=== PATIENT | male | born 1980 | race Caucasian/White ===

== ENCOUNTER 2019-09-24 11:05 | Outpatient (CLI) | payer OTHER, SELFPAY ==
[2019-09-25 16:45] LABS: COVID-19 RT-PCR Result See Comments
== END 2019-09-24 11:25 ==
PROVIDERS: PCP Family Medicine; Visit Provider Family Medicine
DX: J06.9 Acute upper respiratory infection, unspecified (principal); Z20.828 Contact with and (suspected) exposure to other viral communicable diseases; Z11.59 Encounter for screening for other viral diseases
CPT/HCPCS: 87449; U0003

== ENCOUNTER 2020-06-08 01:47 | Outpatient (CLI) | payer OTHER, SELFPAY ==
--- NOTE | 2020-06-08 09:15 | DI.US_ITS ---
EXAM: US RENAL CLINICAL HISTORY: Left sided back pain with history of stones,N20.0. TECHNIQUE: Nelson scale, color and spectral Doppler were used. COMPARISON: CT RENAL COLIC WO CONTRAST from 05/30/2011 FINDINGS: The exam is severely limited due to patient body habitus. Renal size in cm: Right: The right kidney was not able to be visualized. The liver is is enlarged an d shows severe fatty infiltration, obscuring the is visualization of the right kidney. Left: 12.3 x 6.9 x 6.0. Echogenicity: Normal Hydronephrosis: No Cyst or mass: No Nephrolithiasis: No Bladder:Normal Prevoid vol: 131 cc Postvoid vol:3 cc Prostate not visualized IMPRESSION: Normal appearing left kidney. The right kidney was not visualized due to body habitus and fatty avi er. DATA REPOSITORY:
[2020-06-08 09:20] LABS: Hemoglobin A1C 9.5 % (<5.7)
[2020-06-08 09:39] LABS: CREATININE 0.85 mg/dL (0.70-1.30); Calculated LDL 107 mg/dL (<100); Cholesterol 168 mg/dL (<200); HDL Cholesterol 29 mg/dL (40-60); Triglyceride 163 mg/dL (<150)
== END 2020-06-08 02:07 ==
PROVIDERS: PCP Emergency Medicine; Visit Provider Nurse Practitioner Family
DX: M54.9 Dorsalgia, unspecified (principal); Z87.442 Personal history of urinary calculi; K76.0 Fatty (change of) liver, not elsewhere classified; Z13.1 Encounter for screening for diabetes mellitus; Z13.220 Encounter for screening for lipoid disorders
CPT/HCPCS: 36415; 76770; 80061; 82565; 83036

== ENCOUNTER 2020-06-20 13:58 | Emergency (ER) | payer OTHER, SELFPAY ==
--- NOTE | 2020-06-20 14:00 | DI.CT_ITS ---
EXAM: CT RENAL COLIC WO CLINICAL HISTORY: Left flank pain, R/O kidney stone. TECHNIQUE: Imaging Protocol: Axial computed tomography images with coronal and sagittal reformatted images were created and reviewed CONTRAST MATERIAL: Intravenous: none Oral: None COMPARISON: No exams were available for comparison FINDINGS: VISUALIZED LUNGS BASES: No pleural effusions. No obvious nodules.. ABDOMEN: There is no ascites. LIVER: The liver is significantly hypodense implying steatosis. There are no discrete focal hepatic lesions evident on this noninfused study GALLBLADDER/BILIARY: No obvious gallbladder pathology. CBD is not dilated. PANCREAS: No evidence of pancreatic mass nor dilatation of the pancreatic duct. SPLEEN: Spleen size upper normal. ADRENALS: There are no significant adrenal masses. KIDNEYS: Right kidney appears unremarkable. There is a calculus at the left ureteropelvic junction w hich measures 8-9 millimeters with in the upper left ureter mild ipsilateral hydronephrosis and mild perinephric streaking. No other calculi seen lower down in the left ureter nor in the urinary bladde r.. ABDOMINAL AORTA: Abdominal aorta is not enlarged and there is no [id number]-[id number] adenopat hy. ABDOMINAL WALL/GI: No evidence of signature anterior abdominal wall hernia. No bowel obstruction. PELVIS: LYMPH NODES: There is no intrapelvic nor inguinal adenopathy. GI: No evidence of appendicitis.No evidence of sigmoid diverticulitis. URINARY BLADDER: No calculi nor obvious masses evident REPRODUCTIVE: Prostate gland is not enlarged. OSSEOUS: No significant osseous lesions. IMPRESSION: 1. Main finding is an obstructing 8-9 millimeter calculus in the upper left ureter at the ureteropelv ic junction. No other nephrolithiasis evident. Opposite-right kidney is unremarkable. There are 2. No calculi in the nondistended urinary bladder. 3. Hepatic steatosis. Correlation with appropriate hepatic blood work recommended. No ominous focal hepatic lesions evident on this noninfused study. Report called by myself to ER physician following completion of the study Sunday06/20/2020 RADIATION DOSE DELIVERED: 1,791.28mGy.cm Total DLP 1,791.28mGy.cm Total DLP DATA REPOSITORY: All CT scans at this facility are submitted to the National Radiology Data Registry (NRDR) Dose Index Registry (DIR) with the [employer] (ACR). RADIATION OPTIMIZATION: All CT scans at this facility use at least one of these dose optimization te chniques: automated exposure control; mA and/or kV adjustment per patient size (includes targeted exa ms where dose is matched to clinical indication); or iterative reconstruction.
[2020-06-20 14:02] VITALS: BP 158/84; PULSE 85; RESP 22; TEMP 36.5; O2SAT 96
--- NOTE | 2020-06-20 14:22 | W.ED.GENAD ---
Discharge Plan Disposition Patient Disposition: HOME Condition: Stable Discharge Details Clinical Impression: Kidney stone on left side Primary Care Provider: Epifanio Patiño ED Provider: Maegan Saab Home Meds and New Rx's Prescriptions: New ketorolac 10 mg tablet 10 mg PO TID PRN (Reason: pain) 5 Days Qty: 15 RF: 0 No Action sertraline 50 mg tablet 100 mg PO DAILY Qty: 90 RF: 3 lisinopril 10 mg tablet 10 mg PO DAILY Qty: 30 RF: 0 metformin 500 mg tablet 500 mg PO DAILY Qty: 90 RF: 3 Discharge Instructions Instructions: Kidney Stones (ED) Additional Instructions: Strain all urine. Follow-up with urology within the next 1 to 2 weeks. Return to the ED for any vomiting, fever, inability to urinate or any concerns. Follow up with primary care provider in 3-5 days. Return to ED sooner if any worsening or concerns. Increase oral fluids. Please take Tylenol or Ibuprofen with food every 4-6 hours as needed for pain and swelling. Referrals: Epifanio Patiño DO [Primary Care Provider] - Charlie Garza MD [ [facility] STAFF PHYSICIAN] - Discharge Data Discharge Date/Time-TO BE ENTERED AT DEPARTURE: 06/20/20 16:18 Medical Decision Making 39-year-old male presents to the ED for chief complaint of left flank pain which radiates around to his left groin. This has been ongoing for the last week. Got worse over the last 24 to 48 hours described as sharp, comes and goes. Associated with nausea no vomiting. Denies any diarrhea. He has a past medical history of diabetes, depression, back pain, hypertension, morbid obesity, and kidney stone on the left side. He was recently started on lisinopril and Metformin. He did take some ibuprofen this morning. FINDINGS: VISUALIZED LUNGS BASES: No pleural effusions. No obvious nodules.. ABDOMEN: There is no ascites. LIVER: The liver is significantly hypodense implying steatosis. There are no discrete focal hepatic lesions evident on this noninfused study GALLBLADDER/BILIARY: No obvious gallbladder pathology. CBD is not dilated. PANCREAS: No evidence of pancreatic mass nor dilatation of the pancreatic duct. SPLEEN: Spleen size upper normal. ADRENALS: There are no significant adrenal masses. KIDNEYS: Right kidney appears unremarkable. There is a calculus at the left ureteropelvic junction which measures 8-9 millimeters with in the upper left ureter mild ipsilateral hydronephrosis and mild perinephric streaking. No other calculi seen lower down in the left ureter nor in the urinary bladder.. ABDOMINAL AORTA: Abdominal aorta is not enlarged and there is no airllgiepalrcsf-pxgk-[id number] adenopathy. ABDOMINAL WALL/GI: No evidence of signature anterior abdominal wall hernia. No bowel obstruction. PELVIS: LYMPH NODES: There is no intrapelvic nor inguinal adenopathy. GI: No evidence of appendicitis.No evidence of sigmoid diverticulitis. URINARY BLADDER: No calculi nor obvious masses evident REPRODUCTIVE: Prostate gland is not enlarged. OSSEOUS: No significant osseous lesions. IMPRESSION: 1. Main finding is an obstructing 8-9 millimeter calculus in the upper left ureter at the ureteropelvic junction. No other nephrolithiasis evident. Opposite-right kidney is unremarkable. There are 2. No calculi in the nondistended urinary bladder. 3. Hepatic steatosis. Correlation with appropriate hepatic blood work recommended. No ominous focal hepatic lesions evident on this noninfused study. CT as noted above, labs show a urine with 15 ketones, large blood, greater than 50 RBCs. No leukocytes no nitrites no evidence of infected stone. Patient had relief with Toradol and Zofran. Instructed to strain all urine and follow-up with urology discussed strict return instructions, verbalized understanding. Patient remained hemodynamically stable throughout stay. This text was generated using [employer] system, please disregard any oddities of phrase or misspellings. Lab Data Lab results reviewed: Yes I reviewed the patient's lab results. HPI General Mode of arrival: ambulatory. Date/Time Provider Initiated Documentation: 06/20/20 13:59. Limitations to Documentation: no limitations. Information obtained by: patient. HPI Narrative: 39-year-old male presents to the ED for chief complaint of left flank pain which radiates around to his left groin. This has been ongoing for the last week. Got worse over the last 24 to 48 hours described as sharp, comes and goes. Associated with nausea no vomiting. Denies any diarrhea. He has a past medical history of diabetes, depression, back pain, hypertension, morbid obesity, and kidney stone on the left side. He was recently started on lisinopril and Metformin. He did take some ibuprofen this morning. Related Data Home Medications Medication Instructions Recorded Confirmed sertraline 50 mg tablet 100 mg PO DAILY #90 tab-cap 05/27/20 06/20/20 lisinopril 10 mg tablet 10 mg PO DAILY #30 tab 06/16/20 06/20/20 metformin 500 mg tablet 500 mg PO DAILY #90 tab 06/16/20 06/20/20 ketorolac 10 mg PO TID PRN 5 Days #15 tab 06/20/20 Previous Rx's Medication Instructions Recorded sertraline 50 mg tablet 100 mg PO DAILY #90 tab-cap 05/27/20 lisinopril 10 mg tablet 10 mg PO DAILY #30 tab 06/16/20 metformin 500 mg tablet 500 mg PO DAILY #90 tab 06/16/20 ketorolac 10 mg PO TID PRN 5 Days #15 tab 06/20/20 Allergies Allergy/AdvReac Type Severity Reaction Status Date / Time amoxicillin trihydrate Allergy Intermediate Rash Verified 06/20/20 14:11 [From Augmentin] potassium clavulanate Allergy Intermediate Rash Verified 06/20/20 14:11 [From Augmentin] Opioids - Morphine Analogues AdvReac Mild Nausea Verified 06/20/20 14:11 General Stated Complaint: FlankPain JAIR: 3 Review of Systems Narrative: Constitutional: Negative for weight loss, alert and oriented, well groomed, normal body habitus, appears comfortable. HEENT: Denies trauma, headaches, blurry vision, nasal discharge, sore throat, trouble swallowing. Chest: Denies chest pain, palpitations, irregular rhythm, hypertension. Respiratory: Denies Shortness of breath, cough, hemoptysis. GI: Denies abdominal pain, vomiting, diarrhea, constipation. Positive nausea. : Denies dysuria, hematuria, rectal bleeding. Positive left flank pain. Neuro: Denies dizziness, blurry vision, weakness, syncope, headache or facial numbness. Hematologic: Denies easy bruising, intolerance to heat or cold, hair loss. [facility] Mother Essential hypertension Stroke Father Depression Brother No problems noted. Brother No problems noted. Son No problems noted. Son No problems noted. 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 Appears stated age. Obese body habitus. Head: Normocephalic, no trauma. Eyes: Pupils PERRLA, Red reflex noted, EOM's intact. Eyelids symmetrical without lesions, discharge, or swelling. ENT: Bilateral TM's WNL, External ear normal to inspection, no mastoid TTP, swelling, or erythema, Nasal turbinates WNL, no nasal discharge. Normal dentition, Posterior pharynx WNL, no exudate. Chest: RRR, Normal S1, S2, distal pulses intact. Resp: Lungs clear to auscultation bilaterally, no wheezes, rales, or rhonchi. Musculoskeletal: Normal gait, 5/5 strength to all four extremities. Skin: No suspicious rashes or lesions. Capillary refill less than 2 sec. Neurologic: Cranial nerves II-XII intact. Alert and oriented x 3. DTR's intact. Hematologic/Lymphatic: No ecchymosis, no lymphadenopathy. Course Vital Signs Vital signs: Vital Signs Temperature 36.5 C 06/20/20 14:02 Pulse 85 06/20/20 14:02 Respiratory Rate 22 06/20/20 14:02 Blood Pressure 158/84 H 06/20/20 14:02 Pulse Oximetry 96 06/20/20 14:02 Temperature 36.5 C 06/20/20 14:02 Temperature Source Skin 06/20/20 14:02 Pulse 85 06/20/20 14:02 Respiratory Rate 22 06/20/20 14:02 Respiratory Effort Non-Labored 06/20/20 14:09 Blood Pressure 158/84 H 06/20/20 14:02 Blood Pressure Position Sitting 06/20/20 14:02 Pulse Oximetry 96 06/20/20 14:02 Oxygen Delivery Method Room Air 06/20/20 14:02 Oxygen Flow Rate 0 06/20/20 14:02 Pain Level 8 06/20/20 14:10
[2020-06-20 14:25] LABS: Abs Immature Grans 0.03 10^3/uL (0.0-0.06); Absolute Basophil Count 0.02 10^3/uL (0.0-0.2); Absolute Eosinophil Count 0.07 10^3/uL (0.0-0.7); Absolute Lymphocyte Count 2.37 10^3/uL (1.2-3.4); Absolute Monocyte Count 0.91 10^3/uL (0.1-0.8); Absolute Neutrophil Count 6.53 10^3/uL (1.2-6.7); Basophils % 0.2; Eosinophils % 0.7; HCT 49.1 % (40.0-50.0); HGB 16.5 g/dL (13.5-17.5); Immature Grans % 0.3; Lymphocytes % 23.9; MCH 30.7 pg (27.0-33.0); MCHC 33.6 % (32.0-36.0); MCV 91.3 fL (80-95); MPV 10.7 fL (8.0-11.0); Monocytes % 9.2; Neutrophils % 65.7; Nucleated RBC 0 %; Platelet Count 241 10^3/uL (130-400); RBC 5.38 10^6/uL (4.36-5.78); RDW 12.4 % (11.8-14.1); RDW-SD 41.1 fL; WBC 9.93 10^3/uL (4.4-10.8)
[2020-06-20] MEDS: Ondansetron 4 MG/2 ML VIAL IVP (14:34)
[2020-06-20] MEDS: Normal Saline 1,000 ML 1000 ML IV (14:34)
[2020-06-20] MEDS: Normal Saline Flush 10 ML SYR IVP (14:34)
[2020-06-20 14:35] LABS: Bilirubin Negative (Negative); Blood Large (Negative); Clarity Sl Cloudy (Clear); Glucose >=1000 mg/dL (Negative); Ketones 15 mg/dL (Negative); Leukocyte Esterase Negative (Negative); Nitrite Negative (Negative); Specific Gravity >= 1.030 (1.005-1.025); Urobilinogen 0.2 EU/dL (Up TO 0.2); pH 5.5 (5-8)
[2020-06-20 14:35] LABS: ALT 57 U/L (16-63); AST 29 U/L (15-37); Albumin 3.8 g/dL (3.4-5.0); Alkaline Phosphatase 119 U/L (46-116); Anion Gap 7.1 mmol/L (3-11); BUN 12 mg/dL (7-18); Bilirubin, Total 0.5 mg/dL (0.2-1.0); CO2 27.9 mmol/L (21.0-32.0); CREATININE 1.19 mg/dL (0.70-1.30); Calcium 8.7 mg/dL (8.5-10.1); Chloride 102 mmol/L (98-107); Glucose 319 mg/dL (74-106); Potassium 4.2 mmol/L (3.5-5.1); Sodium 137 mmol/L (136-145); Total Protein 7.5 g/dL (6.4-8.2)
[2020-06-20] MEDS: Ketorolac 30 MG/ML VIAL IVP (14:35)
[2020-06-20 14:49] LABS: Epithelial Cells Rare HPF (Negative); RBC >50 HPF (0-2); WBC 0-2 HPF (0-5)
[2020-06-20 14:50] LABS: Bacteria Negative HPF (Negative); C & S Indicated? No; Casts Negative LPF (Negative); Crystals Negative HPF (Negative); Mucus Moderate (Negative); Other Cells Few Renal (Negative)
--- NOTE | 2020-06-20 15:53 | NUR.NOTE ---
[facility]:
[2020-06-20 16:10] VITALS: BP 113/46; PULSE 61; RESP 20; O2SAT 96
== END 2020-06-20 16:18 | disposition home or self-care (01) ==
PROVIDERS: Emergency Provider Registered Nurse Emergency; PCP Emergency Medicine
DX: N13.0 Hydronephrosis with ureteropelvic junction obstruction (principal); R11.0 Nausea; Z87.442 Personal history of urinary calculi; E11.9 Type 2 diabetes mellitus without complications; Z79.84 Long term (current) use of oral hypoglycemic drugs; I10 Essential (primary) hypertension
CPT/HCPCS: 36415; 80053; 96361; 96374; 96375; 99284; 74176; 81003; 81015; 85025; J1885; J2405

== ENCOUNTER 2020-06-26 00:28 | Emergency (ER) | payer OTHER, SELFPAY ==
[2020-06-26 00:34] VITALS: BP 142/66; PULSE 110; RESP 16; TEMP 36; O2SAT 97
--- NOTE | 2020-06-26 00:41 | ED.GENADUL_ITS ---
Discharge Plan Disposition Patient Disposition: HOME Condition: Good Discharge Details Clinical Impression: Vaso-vagal reaction Primary Care Provider: Epifanio Patiño ED Provider: Andrés West Meds and New Rx's Prescriptions: Continued sertraline 50 mg tablet 100 mg PO DAILY Qty: 90 RF: 3 lisinopril 10 mg tablet 10 mg PO DAILY Qty: 30 RF: 0 metformin 500 mg tablet 500 mg PO BID RF: 0 Discharge Instructions Instructions: Near Syncope (ED) Additional Instructions: As we discussed this appears to be a vasovagal reaction to the pain you had one urinating. It did not result in complete loss of consciousness most likely because you cannot standing. If further similar reaction be sure to sit or lie down. If you develop chest pain, shortness of breath, unprovoked fainting, other concerns return to ED. Referrals: Epifanio Patiño, [Primary Care Provider] - Medical Decision Making Patient's history is clearly vagal reaction related to severe pain he developed while urinating. Vital signs look good here. He has no pain and feels much better. At no time did he have chest pain or shortness of breath. Exam is unremarkable. Given the inciting event and the description of the episode with fairly quick recovery, very comfortable diagnosing this is a vasovagal response. I do not think we need to pursue any further evaluation here. We discussed what vasovagal symptoms are and what potential triggers are. Patient discharged home in good condition. Medical Records Medical records reviewed: Yes I reviewed the patient's medical records. HPI General Mode of arrival: ambulatory . Date/Time Provider Initiated Documentation: 06/26/20 00:29 . Limitations to Documentation: no limitations . Information obtained by: patient, RN notes reviewed and old records reviewed . HPI Narrative: Patient presents to the ED from home after episode of becoming lightheaded, weak, sweaty after going to the bathroom. Patient has a stent in place for a large proximal kidney stone. Periodically when he urinates he develops pain and has hematuria. This evening had severe pain in the back abdomen groin area as sociated with urinating. No so bad he had to sit down. Subsequently started to feel hot and sweaty. He called to his who stated that he looked pale and should go lay down on the bed. He was able to get to the bed but reports getting weaker with tunnel vision, sweatiness, tingling. He did not actually pass out at any time. He did not develop chest pain or pressure. He subsequently started to feel better and on EMS arrival had no pain. Heart rate was fine the blood pressure a little low. He declined transport and came in by private vehicle. Currently at this time he states that he has no pain and feels pretty much back to normal. Related Data Home Medications Medication Instructions Recorded Confirmed sertraline 50 mg tablet 100 mg PO DAILY #90 tab-cap 05/27/20 06/26/20 lisinopril 10 mg tablet 10 mg PO DAILY #30 tab 06/16/20 06/26/20 metformin 500 mg PO BID 06/26/20 06/26/20 Previous Rx's Medication Instructions Recorded sertraline 50 mg tablet 100 mg PO DAILY #90 tab-cap 05/27/20 lisinopril 10 mg tablet 10 mg PO DAILY #30 tab 06/16/20 Allergies Allergy/AdvReac Type Severity Reaction Status Date / Time amoxicillin trihydrate Allergy Intermediate Rash Verified 06/26/20 00:36 [From Augmentin] potassium clavulanate Allergy Intermediate Rash Verified 06/26/20 00:36 [From Augmentin] Opioids - Morphine Analogues AdvReac Mild Nausea Verified 06/26/20 00:36 General Stated Complaint: Abd Prob JAIR: 3 Review of Systems Narrative: As documented in HPI otherwise negative as below. Const: no fever, chills Resp: no cough, SOB, pleuritic pain CV: no CP, edema GI: no nausea, vomiting, diarrhea Neuro: no headache, focal weakness, confusion PFSH Medical History Diabetes Hypertension Kidney stone Obesity, morbid, BMI 50 or higher Surgical History S/P ureteral stent placement Family History Mother Essential hypertension Stroke Father Depression Brother No problems noted. Brother No problems noted. Son No problems noted. Son No problems noted. 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 HEENT: NC/AT. Normal facial exam. Eyes: Normal conjunctiva and sclera. Neck: Supple. Trachea midline. Lungs: Normal respiratory effort. Lungs are clear. Cor: RRR without murmur/gallop. Good radial pulses. Neuro: A+O x 3. Normal speech, mentation, gait. Cranial nerves II - XII grossly intact. No gross motor or sensory deficit. Ext: No C/C/E. Course Vital Signs Vital signs: Vital Signs Temperature 96.8 F L 06/26/20 00:34 Pulse 110 H 06/26/20 00:34 Respiratory Rate 16 06/26/20 00:34 Blood Pressure 142/66 H 06/26/20 00:34 Pulse Oximetry 97 06/26/20 00:34 Temperature 96.8 F L 06/26/20 00:34 Temperature Source Skin 06/26/20 00:34 Pulse 110 H 06/26/20 00:34 Respiratory Rate 16 06/26/20 00:34 Respiratory Effort Non-Labored 06/26/20 00:39 Blood Pressure 142/66 H 06/26/20 00:34 Blood Pressure Position Sitting 06/26/20 00:34 Pulse Oximetry 97 06/26/20 00:34 Oxygen Delivery Method Room Air 06/26/20 00:34 Oxygen Flow Rate 0 06/26/20 00:34 Pain Level 3 06/26/20 00:39
[2020-06-26 01:08] VITALS: PULSE 101; RESP 16; O2SAT 98
== END 2020-06-26 01:05 | disposition home or self-care (01) ==
PROVIDERS: Emergency Provider Emergency Medicine; PCP Emergency Medicine
DX: R55 Syncope and collapse (principal); N13.2 Hydronephrosis with renal and ureteral calculous obstruction; Z96.0 Presence of urogenital implants; Y83.1 Surgical operation with implant of artificial internal device as the cause of abnormal reaction of the patient, or of later complication, without mention of misadventure at the time of the procedure; E11.9 Type 2 diabetes mellitus without complications; Z79.84 Long term (current) use of oral hypoglycemic drugs; I10 Essential (primary) hypertension
CPT/HCPCS: 99282; 99283

== ENCOUNTER 2020-08-24 01:17 | Outpatient (CLI) | payer OTHER, SELFPAY ==
--- NOTE | 2020-08-24 08:15 | DI.US_ITS ---
EXAM: US RENAL CLINICAL HISTORY: r/o silent hydronephrosis after ureteroscopy,lt kidney stone. TECHNIQUE: Nelson scale, color and spectral Doppler were used. COMPARISON: US US RENAL from 06/08/2020 FINDINGS: Renal size in cm: Right: 11.8. Left: 12.2. Echogenicity: Normal. Hydronephrosis: No. Cyst or mass: No. Nephrolithiasis: No. Other findings: None. Bladder:Incompletely distended. This limits evaluation. Ureteral jets: Right: Visualized and unremarkable. Left: Visualized and unremarkable. Prevoid vol:9 cc Postvoid vol:Not obtained Prostate: Not visualized. Renal color flow: Symmetric and within normal limits. IMPRESSION: 1. No evidence of nephrolithiasis or hydronephrosis. 2. Urinary bladder was not adequately evaluated due to incomplete distension. DATA REPOSITORY:
== END 2020-08-24 01:18 ==
LOC: DI 01:17
PROVIDERS: PCP Nurse Practitioner Family; Visit Provider Urology
DX: Z87.442 Personal history of urinary calculi (principal)
CPT/HCPCS: 76770

== ENCOUNTER 2020-11-04 20:08 | Outpatient (REF) | payer OTHER, SELFPAY ==
[2020-11-06 12:23] LABS: COVID-19 RT-PCR UVMMC Result Negative (Negative)
== END 2020-11-04 20:09 | disposition home or self-care (01) ==
LOC: LBN 20:08
PROVIDERS: PCP Nurse Practitioner Family; Visit Provider Nurse Practitioner Family
DX: Z20.822 Contact with and (suspected) exposure to COVID-19 (principal)
CPT/HCPCS: U0003

== ENCOUNTER 2021-10-25 03:23 | Outpatient (CLI) | payer BC, SELFPAY | END 2021-10-25 03:24 | disposition home or self-care (01) | LOC: LBO 03:23 | PROVIDERS: PCP Nurse Practitioner Family; Visit Provider Nurse Practitioner Family ==

== ENCOUNTER 2021-11-01 02:15 | Outpatient (CLI) | payer BC, SELFPAY ==
[2021-11-01 14:52] LABS: Hemoglobin A1C 8.8 % (<5.7)
[2021-11-01 15:12] LABS: COMMENT (LAB VIEW ONLY) 83.18 mg/dL; Microalb ug/mg Crea 10.6 ug/mg Cr
[2021-11-01 15:15] LABS: CREATININE 0.8 mg/dL (0.70-1.30); Calculated LDL 102 mg/dL (<100); Cholesterol 190 mg/dL (<200); HDL Cholesterol 31 mg/dL (40-60); Triglyceride 287 mg/dL (<150)
== END 2021-11-01 02:16 | disposition home or self-care (01) ==
LOC: LBO 02:15
PROVIDERS: PCP Nurse Practitioner Family; Visit Provider Nurse Practitioner Family
DX: E11.9 Type 2 diabetes mellitus without complications (principal); E66.01 Morbid (severe) obesity due to excess calories
CPT/HCPCS: 36415; 80061; 82043; 82565; 82570; 83036

== ENCOUNTER 2022-02-17 14:18 | Emergency (ER) | payer OTHER, SELFPAY ==
[2022-02-17 14:22] VITALS: BP 150/77; PULSE 83; RESP 18; TEMP 36.8; O2SAT 97
[2022-02-17 14:38] LABS: Bilirubin Negative (Negative); Blood Negative (Negative); Clarity Clear (Clear); Glucose Negative (Negative); Ketones Negative (Negative); Leukocyte Esterase Negative (Negative); Nitrite Negative (Negative); Specific Gravity >= 1.030 (1.005-1.025); Urobilinogen 0.2 EU/dL (Up TO 0.2)
--- NOTE | 2022-02-17 15:00 | DI.CT_ITS ---
Exam(s) CT ABDOMEN PELVIS WO EXAM: CT ABDOMEN PELVIS WO CLINICAL HISTORY: left flank into groin pain; kidney stone v hernia. TECHNIQUE: Imaging Protocol: Axial computed tomography images with coronal and sagittal reformatted images were created and reviewed. COMPARISON: CT CT RENAL COLIC WO from 06/20/2020 FINDINGS: ABDOMEN: Lung Bases: Normal where visualized. Liver: There is diffuse fatty infiltration of the liver. The liver measures 25 cm long. No measurab le mass. Gallbladder and biliary tract: No radiodense calculus or biliary ductal dilation. Pancreas: Normal density, no abnormal calcifications or inflammatory process. Spleen: Normal. Kidneys: Normal size, contour and axis.There is a 2 mm stone in the lower pole of the left kidney. N o hydronephrosis is present. No masses seen. Adrenal glands: No mass is seen. Lymph nodes: Within normal limits. Abdominal Aorta: Abdominal portion non-dilated. PELVIS: Bladder:Symmetric distention, no gross wall thickening. Bowel: No obstruction or bowel wall thickening. No evidence of appendicitis. There are diverticula s een in the sigmoid colon, but no evidence of acute diverticulitis. Peritoneal cavity: No ascites, collection or mesenteric inflammatory response. No free air. Reproductive organs: Unremarkable as visualized. Bones: Within normal limits. Soft Tissues: There are small bilateral fat containing inguinal hernia. IMPRESSION: 1. Left nephrolithiasis. No hydronephrosis. 2. Hepatomegaly and hepatic steatosis. 3. Small bilateral fat containing inguinal hernias. 4. Colonic diverticulosis but no evidence of acute diverticulitis. 5. Results of this exam have been verbally communicated with provider. RADIATION DOSE DELIVERED: 1,874.88mGy.cm Total DLP DATA REPOSITORY: All CT scans at this facility are submitted to the National Radiology Data Registry (NRDR) Dose Index Registry (DIR) with the [employer] (ACR). RADIATION OPTIMIZATION: All CT scans at this facility use at least one of these dose optimization te chniques: automated exposure control; mA and/or kV adjustment per patient size (includes targeted exa ms where dose is matched to clinical indication); or iterative reconstruction.
--- NOTE | 2022-02-17 15:13 | ED.GENADUL_ITS ---
Discharge Plan Disposition Patient Disposition: HOME Condition: Stable Discharge Details Clinical Impression: Back pain, Kidney stone, Inguinal hernia Primary Care Provider: Wilfrid Frank ED Provider: Patrick Wilde Home Meds and New Rx's Prescriptions: New cyclobenzaprine 10 mg tablet 10 mg PO HS PRN (Reason: muscle spasm) Qty: 10 0RF lidocaine [Lidoderm] 5 % adhesive patch,medicated 1 patch topical DAILY Qty: 15 0RF Rx Instructions: leave on most painful area for up to 12 hrs No Action ketoconazole 2 % cream 1 applic topical DAILY Qty: 60 0RF Rx Instructions: apply once daily to bilateral feet x6 weeks cetirizine [Zyrtec] 10 mg tablet 10 mg PO DAILY PRN (Reason: allergy symptoms) Qty: 90 3RF lisinopril 10 mg tablet 10 mg PO DAILY Qty: 90 3RF metformin 500 mg tablet 1,000 mg PO BID Qty: 90 4RF Rx Instructions: Take 1000mg twice a day. atorvastatin 10 mg tablet 10 mg PO QHS Qty: 90 3RF sertraline 100 mg tablet 100 mg PO DAILY Qty: 90 3RF Discharge Instructions Instructions: Back Pain (ED) Additional Instructions: Please follow-up with your primary care physician as well as your urologist. He was found to have a kidney stone in your left kidney. You are also found to have inguinal hernias. Please return to the emergency department if you develop any worsening symptoms such as severe pain and nausea vomiting fevers constipation or other worsening symptoms. Medical Decision Making 41-year-old male history of kidney stones diabetes obesity presents with left flank pain radiating to left groin, nausea yesterday without vomiting, felt better until he bent forward yesterday to pick something up and had acute worsening pain, denies urinary symptoms at this time, afebrile nontoxic. No CVA tenderness no midline spinal tenderness, does have some fullness to left hemiscrotum otherwise normal external genitalia. Consider intermittently self reducing inguinal hernia versus kidney stone versus musculoskeletal back pain versus less likely testicular torsion or orchitis. Urinalysis showing no blood or leuk esterase. Will trial anti-inflammatory analgesia in the form of IM Toradol and Lidoderm patch. Will obtain CT abdomen pelvis without contrast to assess for kidney stone. [id number] patient resting comfortably no acute distress. Evidence of intrarenal kidney stone. No evidence of UTI or hematuria. Inguinal hernia seen on CT. No clinical evidence of incarceration or strangulation. Home care instructions and return precautions given. Patient will follow up with his primary urologist . Will be given cyclobenzaprine as well as Lidoderm patches for presumed musculoskeletal back pain. HPI General Date/Time Provider Initiated Documentation: 02/17/22 15:03 . HPI Narrative: 41-year-old male history of obesity, diabetes, kidney stones, presents with left flank pain radiating into his left groin specifically into his testicle over the past 2 days; slight nausea no vomiting. No urinary symptoms. Has not noticed any blood in his urine. Past kidney stones have required stenting. Endorse that his pain actually went away yesterday and then returned when he bent forward to lean down Related Data Home Medications Medication Instructions Recorded Confirmed ketoconazole 2 % topical cream 1 applic topical DAILY #60 grams 11/04/20 02/17/22 lisinopril 10 mg tablet 10 mg PO DAILY #90 tabs 07/27/21 02/17/22 metformin 500 mg tablet 1,000 mg PO BID #90 tabs 09/23/21 02/17/22 cetirizine 10 mg tablet (Zyrtec) 10 mg PO DAILY PRN allergy 10/13/21 02/17/22 symptoms #90 tabs atorvastatin 10 mg tablet 10 mg PO QHS #90 tabs 11/14/21 02/17/22 sertraline 100 mg tablet 100 mg PO DAILY #90 tab-caps 01/26/22 02/17/22 cyclobenzaprine 10 mg tablet 10 mg PO HS PRN muscle spasm #10 02/17/22 tabs lidocaine 5 % topical patch 1 patch topical DAILY #15 ea 02/17/22 (Lidoderm) Previous Rx's Medication Instructions Recorded ketoconazole 2 % topical cream 1 applic topical DAILY #60 grams 11/04/20 lisinopril 10 mg tablet 10 mg PO DAILY #90 tabs 07/27/21 metformin 500 mg tablet 1,000 mg PO BID #90 tabs 09/23/21 cetirizine 10 mg tablet (Zyrtec) 10 mg PO DAILY PRN allergy 10/13/21 symptoms #90 tabs atorvastatin 10 mg tablet 10 mg PO QHS #90 tabs 11/14/21 sertraline 100 mg tablet 100 mg PO DAILY #90 tab-caps 01/26/22 cyclobenzaprine 10 mg tablet 10 mg PO HS PRN muscle spasm #10 02/17/22 tabs lidocaine 5 % topical patch 1 patch topical DAILY #15 ea 02/17/22 (Lidoderm) Allergies Allergy/AdvReac Type Severity Reaction Status Date / Time amoxicillin trihydrate Allergy Intermediate Rash Verified 02/17/22 14:26 [From Augmentin] potassium clavulanate Allergy Intermediate Rash Verified 02/17/22 14:26 [From Augmentin] Opioids - Morphine Analogues AdvReac Mild Nausea Verified 02/17/22 14:26 General Stated Complaint: Nk/Back Pain JAIR: 3 Review of Systems Narrative: Review of Systems Constitutional: negative Eyes: negative ENT: negative Cardiovascular: negative Respiratory: negative Gastrointestinal: negative : Flank pain groin pain Musculoskeletal: negative Skin: negative Neurologic: negative Psych: negative PFSH All Active Problems (Updated 02/17/22 @ 16:36 by Patrick Wilde MD) Back pain (Acute) Kidney stone (Chronic) Inguinal hernia (Acute) LIS (obstructive sleep apnea) (Chronic) Acanthosis nigricans (Acute) Obesity, morbid, BMI 50 or higher (Chronic) Hypertension (Chronic) Diabetes (Chronic) Kidney stone (Chronic) Back pain (Acute) Acute depression (Acute) Screening cholesterol level (Acute) Screening for diabetes mellitus (Acute) Kidney stone on left side (Acute) Medical History Diabetes Hypertension Kidney stone Obesity, morbid, BMI 50 or higher Surgical History S/P ureteral stent placement Family History Mother Essential hypertension Stroke Father Depression Brother No problems noted. Brother No problems noted. Son No problems noted. Son No problems noted. Daughter Asthma Social History (Updated 10/14/21 @ 10:29 by Aditi Dimas) Smoking/Tobacco Use Status: Current every day Tobacco Type: cigarettes Smokeless tobacco user: chewing tobacco Second Hand Exposure: Yes Smoking risk assessment performed?: Yes Alcohol Intake: former Drug use: Daily Substance use type: marijuana current occupation: [employer] What type of physical activity do you participate in: none Do you feel safe at home: Yes Do you feel safe in your relationship?: Yes Exam Narrative Exam Narrative: Physical Examination General: alert, awake, cooperative, resting comfortably, no acute distress HEENT: normocephalic, atraumatic; PERRL, EOM intact, conjunctiva normal; no nasal discharge; moist mucous membranes, oral and pharyngeal mucosa normal, tolerating secretions Neck: supple, trachea midline; full ROM Chest: normal to inspection Respiratory: normal respiratory effort, speaking in full sentences, clear to auscultation, no wheezing, rales or rhonchi Cardiac: regular rate, regular rhythm, S1S2 intact, no murmurs rubs or gallops GI: abdomen soft, non-tender, non-distended; no palpable mass or hepatosplenomegaly : Normal external genitalia, no testicular discomfort, no penile discharge, noted some fullness to the left hemiscrotum soft easily compressible Back: No midline spinal tenderness, no CVA tenderness Skin: no lesions, rashes or trauma appreciated Neuro: AAOx3, normal speech, moving all extremities Psych: Appropriate mood and affect Course Vital Signs Vital signs: Vital Signs Temperature 36.8 C 02/17/22 14:22 Pulse 83 02/17/22 14:22 Respiratory Rate 18 02/17/22 14:22 Blood Pressure 150/77 H 02/17/22 14:22 Pulse Oximetry 97 02/17/22 14:22 Temperature 36.8 C 02/17/22 14:22 Temperature Source Temporal Artery Scan 02/17/22 14:22 Pulse 83 02/17/22 14:22 Respiratory Rate 18 02/17/22 14:22 Respiratory Effort Non-Labored 02/17/22 14:26 Blood Pressure 150/77 H 02/17/22 14:22 Blood Pressure Position Sitting 02/17/22 14:22 Pulse Oximetry 97 02/17/22 14:22 Oxygen Delivery Method Room Air 02/17/22 14:22 Oxygen Flow Rate 0 02/17/22 14:22 Lab/Test Results Lab/Test Results: Laboratory Tests Range/Units 02/17/22 14:30 Urine Color (Yellow) Yellow Urine Clarity (Clear) Clear Urine pH (5-8) 6.0 Ur Specific Leslie (1.005-1.025) >= 1.030 H Urine Protein (Negative) mg/dL Negative Urine Ketones (Negative) mg/dL Negative Urine Blood (Negative) Negative Urine Nitrite (Negative) Negative Urine Bilirubin (Negative) Negative Urine Urobilinogen (Up TO 0.2) EU/dL 0.2 Ur Leukocyte Esterase (Negative) Negative Urine Glucose (Negative) mg/dL Negative
[2022-02-17] MEDS: Lidocaine 5% Patch 1 PATCH TP (15:18)
[2022-02-17] MEDS: Ketorolac 15 MG/ML VIAL IM (15:18)
--- NOTE | 2022-02-17 16:31 | PDOC.ERCMPRO ---
- If Service Date Differs Date of service: 02/17/22 Time of Service: 16:31 Care Management Progress Note SBIRT screen: positive for vaping nicotine and cannabis daily. Pt endorses no symptoms related to cannabis use and reports no desire to consider changing at this time. Pt does endorse a desire to quit nicotine and was provided with resources for cessation.
== END 2022-02-17 17:34 | disposition home or self-care (01) ==
PROVIDERS: Physician Assistant; Emergency Provider Emergency Medicine; PCP Nurse Practitioner Family
DX: K40.90 Unilateral inguinal hernia, without obstruction or gangrene, not specified as recurrent (principal); N20.0 Calculus of kidney; E11.9 Type 2 diabetes mellitus without complications; E66.01 Morbid (severe) obesity due to excess calories; I10 Essential (primary) hypertension; F17.210 Nicotine dependence, cigarettes, uncomplicated; Z79.84 Long term (current) use of oral hypoglycemic drugs; Z79.899 Other long term (current) drug therapy
CPT/HCPCS: 96372; 99284; 74176; 81003; J1885

== ENCOUNTER → 2022-03-01 01:22 | Outpatient (CLI) | payer OTHER, SELFPAY ==
--- NOTE | 2022-03-01 13:35 | DI.RAD_ITS ---
Exam(s) XR LUMBAR SPINE COMPLETE EXAM: XR LUMBAR SPINE COMPLETE CLINICAL HISTORY: vertebral alignment m54.9 dorsalgia TECHNIQUE: COMPARISON: No exams were available for comparison FINDINGS: Five views were obtained. There is mild left convex lumbar scoliosis. The intervertebral disc space s are well maintained. There are mild endplate hypertrophic changes of the lumbar spine and moderate endplate hypertrophic changes of the lower thoracic spine. Slight hypertrophic degenerative changes of facet joints also noted throughout the lumbar region. There is no evidence of spondylolysis or s pondylolisthesis. IMPRESSION: Degenerative changes as described above. RADIATION DOSE DELIVERED: Total DLP
== END ==
PROVIDERS: PCP Nurse Practitioner Family; Visit Provider Nurse Practitioner Family
DX: M47.816 Spondylosis without myelopathy or radiculopathy, lumbar region (principal); M41.9 Scoliosis, unspecified
CPT/HCPCS: 72110

== ENCOUNTER 2022-05-13 11:05 | Emergency (ER) | payer OTHER, SELFPAY ==
[2022-05-13 11:10] VITALS: BP 140/73; PULSE 88; RESP 20; TEMP 36.6; O2SAT 96
--- NOTE | 2022-05-13 11:15 | RT.EKG_ITS ---
APPROVED REPORT Exam: Resting ECG Reason for Exam: upper abd pain Patient Location: E HR:76 bpm ECG Measurements Heart Rate 76 AXIS NJ 178 P 35 QRSd 98 QRS 8 QT 341 T 42 QTc 383 Conclusion Sinus rhythm...normal P axis, V-rate 60- 99 Supraventricular bigeminy...bigeminy string>4 w/ SV complexes sinus rhtyhm, normal axis, normal intervals, non ischemic
--- NOTE | 2022-05-13 11:15 | DI.CT_ITS ---
Exam(s) CT ABDOMEN PELVIS WO EXAM: CT ABDOMEN PELVIS WO CLINICAL HISTORY: RUQ pain, concern for early cholecystitis. TECHNIQUE: Imaging Protocol: Axial computed tomography images with coronal and sagittal reformatted images were created and reviewed. COMPARISON: CT CT ABDOMEN PELVIS WO from 02/17/2022 FINDINGS: ABDOMEN: Lung Bases: Normal where visualized. Liver: There is diffuse decreased attenuation of the liver consistent with fatty infiltration. The l iver measures 25 cm long. No measurable mass. Gallbladder and biliary tract: No radiodense calculus or biliary ductal dilation. Pancreas: Normal density, no abnormal calcifications or inflammatory process. Spleen: Normal. Kidneys: Normal size, contour and axis.No radiodense stones or obstructive uropathy. No masses seen. Adrenal glands: No mass is seen. Lymph nodes: Within normal limits. Abdominal Aorta: Abdominal portion non-dilated. PELVIS: Bladder:Symmetric distention, no gross wall thickening. Bowel: No obstruction or bowel wall thickening. No evidence of appendicitis. There are diverticula s een in the proximal sigmoid colon, but no evidence of acute diverticulitis. Peritoneal cavity: There is no ascites. There is mild infiltration of the right pararenal fascia adj acent to the right hepatic lobe. Is of uncertain if any clinical significance. No free air. Reproductive organs: Unremarkable as visualized. Bones: Within normal limits. There are old left rib fracture deformities. Soft Tissues: Within normal limits. IMPRESSION: 1. No CT evidence to suggest acute appendicitis. 2. Mild infiltration of the soft tissues in the right posterior and anterior perirenal fascia adjacen t to the right lobe of uncertain if any clinical significance. 3. Hepatomegaly and hepatic steatosis. RADIATION DOSE DELIVERED: 1,640.79mGy.cm Total DLP DATA REPOSITORY: All CT scans at this facility are submitted to the National Radiology Data Registry (NRDR) Dose Index Registry (DIR) with the [employer] (ACR). RADIATION OPTIMIZATION: All CT scans at this facility use at least one of these dose optimization te chniques: automated exposure control; mA and/or kV adjustment per patient size (includes targeted exa ms where dose is matched to clinical indication); or iterative reconstruction.
--- NOTE | 2022-05-13 11:32 | ED.GENADUL_ITS ---
Discharge Plan Disposition Patient Disposition: HOME Condition: Improving Discharge Details Clinical Impression: Abdominal pain, acute, right upper quadrant, Common bile duct dilatation, Thickening of wall of gallbladder Primary Care Provider: Wilfrid Frank ED Provider: Patrick Wilde Home Meds and New Rx's Prescriptions: New ondansetron 4 mg tablet,disintegrating 4 mg PO Q8H PRN (Reason: nausea and vomiting) Qty: 7 0RF No Action cetirizine [Zyrtec] 10 mg tablet 10 mg PO DAILY PRN (Reason: allergy symptoms) Qty: 90 3RF lisinopril 10 mg tablet 10 mg PO DAILY Qty: 90 3RF metformin 500 mg tablet 1,000 mg PO BID Qty: 90 4RF Rx Instructions: Take 1000mg twice a day. atorvastatin 10 mg tablet 10 mg PO QHS Qty: 90 3RF sertraline 100 mg tablet 100 mg PO DAILY Qty: 90 3RF cyclobenzaprine 10 mg tablet 10 mg PO HS PRN (Reason: muscle spasm) Qty: 10 0RF lidocaine [Lidoderm] 5 % adhesive patch,medicated 1 patch topical DAILY Qty: 15 0RF Rx Instructions: leave on most painful area for up to 12 hrs Discharge Instructions Instructions: Abdominal Pain (ED) Additional Instructions: Please follow-up with Dr. Bowen of general surgery on Sunday in clinic. You may need to return to the emergency department on Sunday for MRI of the abdomen and further blood work. Please return to the emergency department for any worsening symptoms such as fevers severe worsening abdominal pain nausea vomiting change in skin color or any other abnormal symptoms. Medical Decision Making 41-year-old male history of obesity diabetes presents with right upper quadrant abdominal pain and slight nausea over the past day, worse discomfort with deep breath and with palpation of the right upper quadrant, patient is afebrile nontoxic denies chest pain or shortness of breath. Subjective tenderness in the right upper quadrant without guarding or rebounding. Bedside ultrasound showing thickening of the gallbladder. Concern for early cholecystitis versus biliary colic versus less likely cholangitis or pancreatitis. Low suspicion for PE or ACS however given age and risk factors will obtain EKG and chest x-ray. Also obtain CT abdomen pelvis, fluids analgesia antiemetics close reassessment disposition pending results 14: 32 patient resting comfortably feeling much better after Toradol. No nausea or vomiting. Hemodynamically stable. Given clinical and imaging findings including right upper quadrant discomfort dilated common bile duct and dilated gallbladder wall, clinical picture concerning for choledocholithiasis however patient has normal bilirubin level is afebrile relatively normal white count and is nonperitoneal. Discussed case with general surgeon Dr. Bowen, best next modality would be MRCP however given weekend hours we are unable to obtain this image at this time. Given patient's stability normal examination and laboratory findings, Dr. Bowen offered admission for serial labs repeat examination and further evaluation versus home with close follow-up on Sunday in the clinic with imaging done next week. Patient amenable with care at home and close follow-up early next week. Given strict return precautions for any worsening symptoms. HPI General Date/Time Provider Initiated Documentation: 05/13/22 11:08 . HPI Narrative: 41-year-old male history of obesity, diabetes, presents with right upper quadrant abdominal pain over the last day worse with palpation and deep breath. Slight nausea without vomiting. Passing small bowel movements and passing gas no history of abdominal surgery. Does have history of lithotripsy. Denies chest pain or shortness of breath. Related Data Home Medications Medication Instructions Recorded Confirmed lisinopril 10 mg tablet 10 mg PO DAILY #90 tabs 07/27/21 05/13/22 metformin 500 mg tablet 1,000 mg PO BID #90 tabs 09/23/21 05/13/22 cetirizine 10 mg tablet (Zyrtec) 10 mg PO DAILY PRN allergy 10/13/21 05/13/22 symptoms #90 tabs atorvastatin 10 mg tablet 10 mg PO QHS #90 tabs 11/14/21 05/13/22 sertraline 100 mg tablet 100 mg PO DAILY #90 tab-caps 01/26/22 05/13/22 cyclobenzaprine 10 mg tablet 10 mg PO HS PRN muscle spasm #10 02/17/22 05/13/22 tabs lidocaine 5 % topical patch 1 patch topical DAILY #15 ea 02/17/22 05/13/22 (Lidoderm) ondansetron 4 mg disintegrating 4 mg PO Q8H PRN nausea and 05/13/22 tablet vomiting #7 tabs Previous Rx's Medication Instructions Recorded lisinopril 10 mg tablet 10 mg PO DAILY #90 tabs 07/27/21 metformin 500 mg tablet 1,000 mg PO BID #90 tabs 09/23/21 cetirizine 10 mg tablet (Zyrtec) 10 mg PO DAILY PRN allergy 10/13/21 symptoms #90 tabs atorvastatin 10 mg tablet 10 mg PO QHS #90 tabs 11/14/21 sertraline 100 mg tablet 100 mg PO DAILY #90 tab-caps 01/26/22 cyclobenzaprine 10 mg tablet 10 mg PO HS PRN muscle spasm #10 02/17/22 tabs lidocaine 5 % topical patch 1 patch topical DAILY #15 ea 02/17/22 (Lidoderm) ondansetron 4 mg disintegrating 4 mg PO Q8H PRN nausea and 05/13/22 tablet vomiting #7 tabs Allergies Allergy/AdvReac Type Severity Reaction Status Date / Time amoxicillin trihydrate Allergy Intermediate Rash Verified 05/13/22 11:21 [From Augmentin] potassium clavulanate Allergy Intermediate Rash Verified 05/13/22 11:21 [From Augmentin] Opioids - Morphine Analogues AdvReac Mild Nausea Verified 05/13/22 11:21 General Stated Complaint: Abd Prob JAIR: 3 Review of Systems Narrative: Review of Systems Constitutional: negative Eyes: negative ENT: negative Cardiovascular: negative Respiratory: negative Gastrointestinal: Abdominal pain : negative Musculoskeletal: negative Skin: negative Neurologic: negative Psych: negative PFSH All Active Problems (Updated 05/13/22 @ 14:35 by Patrick Wilde MD) Abdominal pain, acute, right upper quadrant (Acute) Common bile duct dilatation (Acute) Thickening of wall of gallbladder (Acute) LIS (obstructive sleep apnea) (Chronic) Acanthosis nigricans (Acute) Obesity, morbid, BMI 50 or higher (Chronic) Hypertension (Chronic) Diabetes (Chronic) Kidney stone (Chronic) Back pain (Acute) Acute depression (Acute) Screening cholesterol level (Acute) Screening for diabetes mellitus (Acute) Kidney stone on left side (Acute) Surgical History S/P ureteral stent placement Family History Mother Essential hypertension Stroke Father Depression Brother No problems noted. Brother No problems noted. Son No problems noted. Son No problems noted. Daughter Asthma Social History Smoking/Tobacco Use Status: Current every day Tobacco Type: cigarettes Smokeless tobacco user: chewing tobacco Second Hand Exposure: Yes Smoking risk assessment performed?: Yes Alcohol Intake: former Drug use: Daily Substance use type: marijuana current occupation: [employer] What type of physical activity do you participate in: none Do you feel safe at home: Yes Do you feel safe in your relationship?: Yes Exam Narrative Exam Narrative: Physical Examination General: alert, awake, cooperative, uncomfortable appearing HEENT: normocephalic, atraumatic; PERRL, EOM intact, conjunctiva normal; no nasal discharge; moist mucous membranes, oral and pharyngeal mucosa normal, tolerating secretions Neck: supple, trachea midline; full ROM Chest: normal to inspection Respiratory: normal respiratory effort, speaking in full sentences, clear to auscultation, no wheezing, rales or rhonchi Cardiac: regular rate, regular rhythm, S1S2 intact, no murmurs rubs or gallops GI: Subjective tenderness in the right upper quadrant without guarding or rebounding, nondistended Skin: no lesions, rashes or trauma appreciated Neuro: AAOx3, normal speech, moving all extremities Psych: Appropriate mood and affect Course Vital Signs Vital signs: Vital Signs Temperature 36.6 C 05/13/22 11:10 Pulse 88 05/13/22 11:10 Respiratory Rate 20 05/13/22 11:10 Blood Pressure 140/73 05/13/22 11:10 Pulse Oximetry 96 05/13/22 11:10 Temperature 36.6 C 05/13/22 11:10 Temperature Source Temporal Artery Scan 05/13/22 11:10 Pulse 88 05/13/22 11:10 Respiratory Rate 20 05/13/22 11:10 Blood Pressure 140/73 05/13/22 11:10 Pulse Oximetry 96 05/13/22 11:10 Oxygen Delivery Method Room Air 05/13/22 11:10 Oxygen Flow Rate 0 05/13/22 11:10 Pain Level 4 05/13/22 11:10 Comment 05/13/22 11:10
[2022-05-13 11:37] LABS: Abs Immature Grans 0.02 10^3/uL (0.0-0.06); Absolute Basophil Count 0.05 10^3/uL (0.0-0.2); Absolute Eosinophil Count 0.14 10^3/uL (0.0-0.7); Absolute Monocyte Count 1.32 10^3/uL (0.1-0.8); Basophils % 0.5; Eosinophils % 1.3; HCT 45.9 % (40.0-50.0); HGB 15.3 g/dL (13.5-17.5); Immature Grans % 0.2; MCH 30.7 pg (27.0-33.0); MCHC 33.3 % (32.0-36.0); MCV 92 fL (80-95); MPV 10.4 fL (8.0-11.0); Monocytes % 12.1; Neutrophils % 64.9; Platelet Count 239 10^3/uL (130-400); RBC 4.99 10^6/uL (4.36-5.78); RDW 12.4 % (11.8-14.1); RDW-SD 41.6 fL; WBC 10.95 10^3/uL (4.4-10.8)
[2022-05-13 11:38] LABS: Absolute Neutrophil Count 7.11 10^3/uL (1.2-6.7)
[2022-05-13] MEDS: Normal Saline 1,000 ML 1000 ML IV (11:42)
[2022-05-13] MEDS: Ketorolac 15 MG/ML VIAL IVP (11:43)
[2022-05-13] MEDS: Ondansetron 4 MG/2 ML VIAL IVP (11:43)
--- NOTE | 2022-05-13 11:45 | DI.US_ITS ---
Exam(s) US ABDOMEN LIMITED EXAM: US ABDOMEN LIMITED CLINICAL HISTORY: RUQ pain, concern for early cholecystitis TECHNIQUE: Ultrasound abdomen performed using standard protocol. COMPARISON: CT CT ABDOMEN PELVIS WO from 05/13/2022 FINDINGS: PANCREAS: Normal where visualized. LIVER: The liver is echogenic consistent with fatty infiltration. Hepatopedal flow in the Portal Vei n. The liver measures in 22 cm length. GALLBLADDER: No evidence of cholelithiasis. Gallbladder wall measures 9 mm. The gallbladder is mildl y contracted. The patient reports having a medial recently. No pericholecystic fluid identified. BILIARY SYSTEM: Common bile duct measures 14 mm. No intrahepatic biliary ductal dilation. URRUTIA'S SIGN: Negative. RIGHT KIDNEY: Kidney is normal in size. No evidence of renal calculi. No evidence of hydronephrosis. No renal mass or cyst identified. ASCITES: None seen. IMPRESSION: 1. Hepatomegaly and hepatic steatosis. 2. Thickened gallbladder wall. This may be due to underdistention. There is a negative sonographic Urrutia sign. No cholelithiasis. 3. Dilated common bile duct. DATA REPOSITORY:
[2022-05-13 11:55] LABS: ALT 36 U/L (16-63); AST 17 U/L (15-37); Albumin 3.7 g/dL (3.4-5.0); Alkaline Phosphatase 96 U/L (46-116); Anion Gap 4.2 mmol/L (3-11); BUN 11 mg/dL (7-18); Bilirubin, Direct 0.2 mg/dL (0.0-0.2); Bilirubin, Total 0.5 mg/dL (0.2-1.0); CO2 28.8 mmol/L (21.0-32.0); CREATININE 0.9 mg/dL (0.70-1.30); Chloride 103 mmol/L (98-107); Estimated GFR 108.68 (mL/min/1.73m2); Glucose 270 mg/dL (74-106); Lipase 246 U/L (73-393); Potassium 4.2 mmol/L (3.5-5.1); Sodium 136 mmol/L (136-145); Total Protein 7.7 g/dL (6.4-8.2); Troponin I < 50 ng/L (<or=60)
[2022-05-13 12:46] LABS: Bilirubin Negative (Negative); Blood Negative (Negative); Clarity Clear (Clear); Glucose 250 mg/dL (Negative); Ketones Negative (Negative); Leukocyte Esterase Negative (Negative); Nitrite Negative (Negative); Specific Gravity >= 1.030 (1.005-1.025)
--- NOTE | 2022-05-13 13:11 | DI.VRAD_ITS ---
PROCEDURE INFORMATION: Exam: CT Abdomen And Pelvis Without Contrast Exam date and time: 05/13/2022 12:05 PM Age: 41 years old Clinical indication: Other: Ruq pain, concern for early cholecystitis TECHNIQUE: Imaging protocol: Computed tomography of the abdomen and pelvis without contrast. COMPARISON: CT ABDOMEN PELVIS WO 11/20/2021 15:25 FINDINGS: Limitations: Lack of contrast. Liver: Hepatic steatosis. Hepatomegaly. Gallbladder and bile ducts: Contracted gallbladder. There are no dilated intrahepatic biliary ducts. The common bile duct is not well seen, but there is no definite dilatation of the common bile duct to correlate with ultrasound. Pancreas: Normal. No ductal dilation. Spleen: Normal. No splenomegaly. Adrenal glands: Normal. No mass. Kidneys and ureters: Stable right and left perirenal fat infiltration similar to prior study. Stomach and bowel: Diverticulosis without CT evidence of diverticulitis. Normal caliber small bowel. Appendix: If the appendix is not definitely identified. Intraperitoneal space: Unremarkable. No free air. No significant fluid collection. Retroperitoneal space: New infiltration of the right posterior and anterior perirenal fascia contiguous with the inferior right hepatic lobe. Vasculature: Unremarkable. No abdominal aortic aneurysm. Lymph nodes: Scattered retroperitoneal lymph nodes similar to prior study. Urinary bladder: Unremarkable as visualized. Reproductive: Prostate calcifications. Bones/joints: Multilevel degenerative changes of the spine. Old left rib fracture. Anterior wedging of multiple lower thoracic vertebral bodies. Soft tissues: Fat distension of the inguinal canals. IMPRESSION: 1. Thickening and infiltration of the right posterior and anterior perirenal fascia continuous with the inferior right hepatic lobe of uncertain etiology. 2. The appendix is not definitely identified. Consider right lower quadrant ultrasound for further evaluation. 3. Limitations as discussed above. 4. Additional findings as discussed above. Dictated and Authenticated by: Sheri Hairston MD. Ordering:MARISELA Nguyen MD
--- NOTE | 2022-05-13 13:12 | DI.VRAD_ITS ---
PROCEDURE INFORMATION: Exam: US Abdomen, Limited; Right Upper Quadrant Exam date and time: 05/13/2022 12:09 PM Age: 41 years old Clinical indication: Abdominal pain TECHNIQUE: Imaging protocol: Real time ultrasound of the abdomen with image documentation. Limited exam focused on the right upper quadrant. COMPARISON: CT ABDOMEN PELVIS WO 13/05/2022 12:05 FINDINGS: Liver: Echogenic liver. Gallbladder: Thickened gallbladder wall measuring 0.97 cm. Negative Urrutia sign. Biliary ducts: Dilated common bile duct measuring 1.4 cm. Pancreas: Visualized pancreas is unremarkable. Right kidney: Normal. No mass. No hydronephrosis. IMPRESSION: 1. Thickened gallbladder wall. Negative Urrutia sign. 2. Dilated common bile duct. The common bile duct is not definitely seen on CT. Dictated and Authenticated by: Sheri Hairston MD. Ordering:MARISELA Nguyen MD
--- NOTE | 2022-05-13 14:33 | NUR.NOTE ---
Nursing Note: Referral faxed to [facility] for RUQ pain, to be seen SundayMay 15 at the request of Dr Bowen who was consulted.
[2022-05-13 14:52] VITALS: BP 132/70; PULSE 88; RESP 14; O2SAT 98
== END 2022-05-13 14:44 | disposition home or self-care (01) ==
PROVIDERS: Emergency Provider Emergency Medicine; PCP Nurse Practitioner Family
DX: R10.11 Right upper quadrant pain (principal); K83.8 Other specified diseases of biliary tract; K82.8 Other specified diseases of gallbladder
CPT/HCPCS: 36415; 80053; 83690; 93005; 96361; 96374; 96375; 99285; 74176; 76705; 81003; 82248; 84484; 85025; 93010; 99284; J1885; J2405

== ENCOUNTER 2022-10-25 03:06 | Outpatient (CLI) | payer OTHER, SELFPAY ==
[2022-10-25 15:03] LABS: TSH (W/Ref FT4) 0.31 uIU/mL (0.36-3.74)
[2022-10-25 15:40] LABS: FREE T4 1.16 ng/dL (0.76-1.46)
== END 2022-10-25 03:07 | disposition home or self-care (01) ==
LOC: LBO 03:06
PROVIDERS: PCP Nurse Practitioner Family; Visit Provider Nurse Practitioner Family
DX: E11.9 Type 2 diabetes mellitus without complications (principal); E66.01 Morbid (severe) obesity due to excess calories; I10 Essential (primary) hypertension
CPT/HCPCS: 36415; 84439; 84443

== ENCOUNTER 2022-10-27 09:57 | Emergency (ER) | payer OTHER, SELFPAY ==
[2022-10-27 10:05] VITALS: BP 168/84; PULSE 75; RESP 18; TEMP 36.4
--- NOTE | 2022-10-27 10:15 | ED.GENADUL_ITS ---
Discharge Plan Disposition Patient Disposition: Home Condition: Improving Discharge Details Clinical Impression: Dizziness, Nausea Primary Care Provider: Wilfrid Frank ED Provider: Jelly Perez Home Meds and New Rx's Prescriptions: Continued sertraline 50 mg tablet 50 mg PO DAILY Qty: 90 3RF cetirizine [Zyrtec] 10 mg tablet 10 mg PO DAILY PRN (Reason: allergy symptoms) Qty: 90 3RF (DME) blood-glucose meter [OneTouch Ultra2 Meter] Misc See Rx Instructions .Route Qty: 1 0RF Rx Instructions: Daily (DME) OneTouch Ultra Test Strip See Rx Instructions .Route Qty: 100 0RF Rx Instructions: daily (DME) lancets [BD Ultra Fine Lancets] 33 gauge misc See Rx Instructions .Route Qty: 100 0RF Rx Instructions: daily Jardiance 10 mg tablet 10 mg PO DAILY Qty: 90 3RF omeprazole 20 mg tablet,delayed release (DR/EC) 20 mg PO DAILY Qty: 90 3RF metformin 500 mg tablet 1,000 mg PO BID Qty: 90 4RF Rx Instructions: Take 1000mg twice a day. atorvastatin 10 mg tablet 10 mg PO QHS Qty: 90 3RF sertraline 100 mg tablet 100 mg PO DAILY Qty: 90 3RF lisinopril 10 mg tablet 10 mg PO DAILY Qty: 90 3RF ondansetron 4 mg tablet,disintegrating 4 mg PO Q8H PRN (Reason: nausea and vomiting) Qty: 7 0RF Discharge Instructions Instructions: Acute Nausea and Vomiting (ED), Dizziness (ED) Additional Instructions: Your blood tests, EKG and imaging today are reassuring and show no evidence of acute concerning findings. Drink plenty of fluids and get plenty of rest. Follow-up with your primary care doctor in 1 week. Return to the emergency department with any worsening or new concerning symptoms. Discharge Data Discharge Date/Time-TO BE ENTERED AT DEPARTURE: 10/27/22 13:21 Discharge Physician: Jelly Perez Medical Decision Making 100 -- 41-year-old male with a history of morbid obesity, hypertension, GERD, diabetes, obstructive sleep apnea, anxiety and depression who presents for ovi den onset of dizziness, sweating and feeling disoriented while standing outside sweeping. Blood sugar on arrival 177. Patient does appear diaphoretic. He is morbidly obese. His vitals are reassuring. He has no tachycardia or hypotension. During my evaluation he started complaining of sudden nausea. Dose of Zofran IV ordered after review of his medications. He does admit to a recent positive possible sick contact. He denies spinning sensation or thunderclap headache and has no focal deficits and negative HINTS exam so history and presentation does not appear consistent with subarachnoid hemorrhage or cva. He appears nontoxic and has no fever, neck pain, altered mental status or meningeal signs to suggest meningitis. Differential diagnosis includes dehydration, electrolyte abnormal ity, flu, COVID, pneumonia, arrhythmia. We will place an IV, bolus IV fluids, screening labs, right leg ultrasound and will reassess. Recent check of his thyroid reassuring. EKG notes a rate of 68, sinus, normal axis with no acute ischemic findings. 1300 --Labs and imaging reviewed and essentially unremarkable. Normal white blood cell count. Normal electrolytes. Glucose 190 but with normal bicarb and anion gap. D-dimer within normal limits. Urinalysis no evidence of infection. FLUVID negative. Chest x-ray and ultrasound negative for acute findings. Patient reassessed and he feels much better would like to go home. Advised to increase fluids and rest. He has an appointment with his PCP next week. Advised to continue to monitor his glucose and take his regular medications as p rescribed. Usual and customary return precautions given prior to discharge. Medical Records Medical records reviewed: Yes I reviewed the patient's medical records. Imaging Data Radiologic Study: Radiologist's impression: ?US LOWER EXTREMITY VENOUS RT CLINICAL HISTORY: ? pain R post leg, r/o dvt.? TECHNIQUE: ? Lower extremity venous ultrasound performed using grayscale, color- flow, and spectral Doppler analysis. COMPARISON:? No exams were available for comparison FINDINGS: The common femoral, femoral and popliteal veins demonstrate normal compressibility, augmentation, and color Doppler. The posterior tibial veins are patent.? No saphenous vein thrombosis or other superficial venous thrombosis is seen.? No hematoma or Jackman's cyst is seen. IMPRESSION: Negative lower extremity ultrasound.? No evidence of DVT.? XR CHEST 2V PA ? LATERAL CLINICAL HISTORY:? dizziness, r/o acute disease TECHNIQUE:? 2D digital imaging was performed. COMPARISON:? No exams were available for comparison FINDINGS: Exam is mildly limited by patient body habitus. HEART: Normal size.? Aorta: Not dilated. PULMONARY VASCULATURE: Normal. LUNGS: Clear. ? PLEURAL SPACE: No pleural effusion or pneumothorax. BONE:Degenerative changes lower thoracic spine.? IMPRESSION: No acute abnormality.? Lab Data Lab results reviewed: Yes I reviewed the patient's lab results. Labs: Laboratory Tests Range/Units 10/27/22 10/27/22 10/27/22 10:30 10:30 10:30 WBC Cancelled RBC Cancelled Hgb Cancelled Hct Cancelled MCV Cancelled MCH Cancelled MCHC Cancelled RDW Cancelled Plt Count Cancelled MPV Cancelled Immature Gran % Cancelled Neutrophils % Cancelled Band Neutrophils % Cancelled Lymphocytes % Cancelled Atypical Lymphs % Cancelled Monocytes % Cancelled Eosinophils % Cancelled Basophils % Cancelled Metamyelocytes % Cancelled Myelocytes % Cancelled Promyelocytes % Cancelled Other Cells % Cancelled Nucleated RBC % Cancelled Absolute Neutrophils Cancelled Absolute Lymphocytes Cancelled Absolute Monocytes Cancelled Absolute Eosinophils Cancelled Absolute Basophils Cancelled RBC Morphology Cancelled Polychromasia Cancelled Hypochromasia Cancelled Poikilocytosis Cancelled Basophilic Stippling Cancelled Anisocytosis Cancelled Microcytosis Cancelled Macrocytosis Cancelled Spherocytes Cancelled Tear Drop Cells Cancelled Ovalocytes Cancelled Stomatocytes Cancelled [place] Bodies Cancelled Jacinto Cells/Echinocytes Cancelled Acanthocytes (Spur) Cancelled Schistocytes Cancelled D-Dimer (<500) ng/mlFEU VBG pH (7.31-7.41) 7.43 H VBG pCO2 (41-51) mmHg 36 L VBG pO2 mmHg 212 VBG HCO3 (23-28) mmol/L 23 VBG Total CO2 (24-29) mmol/L VBG O2 Saturation % > 100 VBG Base Excess (-2-3) mmol/L -1 Sodium Cancelled Potassium Cancelled Chloride Cancelled Carbon Dioxide Cancelled Anion Gap Cancelled BUN Cancelled Creatinine Cancelled Est GFR (CKD-EPI 2020) Cancelled Glucose Cancelled Calcium Cancelled Total Bilirubin Cancelled AST Cancelled ALT Cancelled Alkaline Phosphatase Cancelled Total Protein Cancelled Albumin Cancelled Urine Color (Yellow) Urine Clarity (Clear) Urine pH (5-8) Ur Specific [place] (1.005-1.025) Urine Protein (Negative) mg/dL Urine Ketones (Negative) mg/dL Urine Blood (Negative) Urine Nitrite (Negative) Urine Bilirubin (Negative) Urine Urobilinogen (Up to 0.2) mg/dL Ur Leukocyte Esterase (Negative) Urine Glucose (Negative) mg/dL COVID-19 Source SARS-CoV-2 (PCR) (Negative) Influenza Type A (PCR) (Negative) Influenza Type B (PCR) (Negative) RSV (PCR) (Negative) Range/Units 10/27/22 10/27/22 10/27/22 10:45 11:10 11:10 WBC RBC Hgb Hct MCV MCH MCHC RDW Plt Count MPV Immature Gran % Neutrophils % Band Neutrophils % Lymphocytes % Atypical Lymphs % Monocytes % Eosinophils % Basophils % Metamyelocytes % Myelocytes % Promyelocytes % Other Cells % Nucleated RBC % Absolute Neutrophils Absolute Lymphocytes Absolute Monocytes Absolute Eosinophils Absolute Basophils RBC Morphology Polychromasia Hypochromasia Poikilocytosis Basophilic Stippling Anisocytosis Microcytosis Macrocytosis Spherocytes Tear Drop Cells Ovalocytes Stomatocytes [place] Bodies Jacinto Cells/Echinocytes Acanthocytes (Spur) Schistocytes D-Dimer (<500) ng/mlFEU 346 VBG pH (7.31-7.41) VBG pCO2 (41-51) mmHg VBG pO2 mmHg VBG HCO3 (23-28) mmol/L VBG Total CO2 (24-29) mmol/L VBG O2 Saturation % VBG Base Excess (-2-3) mmol/L Sodium 138 Potassium 4.4 Chloride 105 Carbon Dioxide 27.5 Anion Gap 5.5 BUN 13 Creatinine 0.8 Est GFR (CKD-EPI 2020) 112.61 Glucose 190 H Calcium 8.8 Total Bilirubin 0.4 AST 38 H ALT 61 Alkaline Phosphatase 84 Total Protein 7.2 Albumin 3.6 Urine Color (Yellow) Urine Clarity (Clear) Urine pH (5-8) Ur Specific [place] (1.005-1.025) Urine Protein (Negative) mg/dL Urine Ketones (Negative) mg/dL Urine Blood (Negative) Urine Nitrite (Negative) Urine Bilirubin (Negative) Urine Urobilinogen (Up to 0.2) mg/dL Ur Leukocyte Esterase (Negative) Urine Glucose (Negative) mg/dL COVID-19 Source Nasopharynx SARS-CoV-2 (PCR) (Negative) Negative Influenza Type A (PCR) (Negative) Negative Influenza Type B (PCR) (Negative) Negative RSV (PCR) (Negative) Negative Range/Units 10/27/22 10/27/22 11:10 12:10 WBC 7.45 RBC 5.04 Hgb 15.3 Hct 44.6 MCV 89 MCH 30.4 MCHC 34.3 RDW 12.5 Plt Count 236 MPV 10.0 Immature Gran % 0.1 Neutrophils % 50.4 Band Neutrophils % Lymphocytes % 38.1 Atypical Lymphs % Monocytes % 9.1 Eosinophils % 1.9 Basophils % 0.4 Metamyelocytes % Myelocytes % Promyelocytes % Other Cells % Nucleated RBC % 0.0 Absolute Neutrophils 3.75 Absolute Lymphocytes 2.84 Absolute Monocytes 0.68 Absolute Eosinophils 0.14 Absolute Basophils 0.03 RBC Morphology Polychromasia Hypochromasia Poikilocytosis Basophilic Stippling Anisocytosis Microcytosis Macrocytosis Spherocytes Tear Drop Cells Ovalocytes Stomatocytes [place] Bodies [place] Cells/Echinocytes Acanthocytes (Spur) Schistocytes D-Dimer (<500) ng/mlFEU VBG pH (7.31-7.41) VBG pCO2 (41-51) mmHg VBG pO2 mmHg VBG HCO3 (23-28) mmol/L VBG Total CO2 (24-29) mmol/L VBG O2 Saturation % VBG Base Excess (-2-3) mmol/L Sodium Potassium Chloride Carbon Dioxide Anion Gap BUN Creatinine Est GFR (CKD-EPI 2020) Glucose Calcium Total Bilirubin AST ALT Alkaline Phosphatase Total Protein Albumin Urine Color (Yellow) Yellow Urine Clarity (Clear) Clear Urine pH (5-8) 5.5 Ur Specific [place] (1.005-1.025) >= 1.030 H Urine Protein (Negative) mg/dL Negative Urine Ketones (Negative) mg/dL Negative Urine Blood (Negative) Negative Urine Nitrite (Negative) Negative Urine Bilirubin (Negative) Negative Urine Urobilinogen (Up to 0.2) mg/dL 0.2 Ur Leukocyte Esterase (Negative) Negative Urine Glucose (Negative) mg/dL 500 H COVID-19 Source SARS-CoV-2 (PCR) (Negative) Influenza Type A (PCR) (Negative) Influenza Type B (PCR) (Negative) RSV (PCR) (Negative) ECG Data Attestation: I personally reviewed and interpreted this ECG (s) as follows: Interpretation: Rate of 68, normal axis, sinus, normal intervals, no ischemic findings. HPI General Mode of arrival: ambulatory . Date/Time Provider Initiated Documentation: 10/27/22 09:57 . Limitations to Documentation: no limitations . Information obtained by: patient . HPI Narrative: Patient is a 41-year-old male with history of morbid obesity, hypertension, diabetes, sleep apnea, GERD, anxiety and depression who presents for sudden onset of dizziness and feeling disoriented with difficulty focusing eyes while standing outside shoveling dirt. Patient states he then sat down outside and felt like he was going to pass out . 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 Patient states he went to a concert last night and states he returned late in the morning and only had 3 hours sleep before going to work today. States he has not eaten or drank much today. He denies any alcohol or drug use. He states he did eat this morning. He does state that he has been taking metformin for his diabetes for the past year. He states he recently followed up with his PCP and was told that his hemoglobin A1c had increased and he was placed on Jardiance 1 week ago. Patient denies any energy drinks today. He states he was just told by his that his son is currently home with a fever but patient denies any fever, ear pain, sore throat, cough, chest pain, difficulty breathing or abdominal pain or urinary symptoms. He does admit to nausea that started while sitting here in the emergency department. Patient does also report that he has a right posterio r calf pain for the past 3 weeks. He denies any right leg swelling. Related Data Home Medications Medication Instructions Recorded Confirmed metformin 500 mg tablet 1,000 mg PO BID #90 tabs 09/23/21 10/19/22 cetirizine 10 mg tablet (Zyrtec) 10 mg PO DAILY PRN allergy 10/13/21 10/19/22 symptoms #90 tabs atorvastatin 10 mg tablet 10 mg PO QHS #90 tabs 11/14/21 10/19/22 sertraline 100 mg tablet 100 mg PO DAILY #90 tab-caps 01/26/22 10/19/22 ondansetron 4 mg disintegrating 4 mg PO Q8H PRN nausea and 05/13/22 10/19/22 tablet vomiting #7 tabs sertraline 50 mg tablet 50 mg PO DAILY #90 tabs 05/24/22 10/19/22 lisinopril 10 mg tablet 10 mg PO DAILY #90 tabs 09/11/22 10/19/22 blood sugar diagnostic (OneTouch #100 ea 10/19/22 10/19/22 Ultra Test strips) blood-glucose meter (OneTouch #1 ea 10/19/22 10/19/22 Ultra2 Meter) empagliflozin 10 mg tablet 10 mg PO DAILY #90 tabs 10/19/22 10/19/22 (Jardiance) lancets 33 gauge (BD Ultra Fine #100 ea 10/19/22 10/19/22 Lancets) omeprazole 20 mg tablet,delayed 20 mg PO DAILY #90 tabs 10/19/22 10/19/22 release Previous Rx's Medication Instructions Recorded metformin 500 mg tablet 1,000 mg PO BID #90 tabs 09/23/21 cetirizine 10 mg tablet (Zyrtec) 10 mg PO DAILY PRN allergy 10/13/21 symptoms #90 tabs atorvastatin 10 mg tablet 10 mg PO QHS #90 tabs 11/14/21 sertraline 100 mg tablet 100 mg PO DAILY #90 tab-caps 01/26/22 ondansetron 4 mg disintegrating 4 mg PO Q8H PRN nausea and 05/13/22 tablet vomiting #7 tabs sertraline 50 mg tablet 50 mg PO DAILY #90 tabs 05/24/22 lisinopril 10 mg tablet 10 mg PO DAILY #90 tabs 09/11/22 blood sugar diagnostic (OneTouch #100 ea 10/19/22 Ultra Test strips) blood-glucose meter (OneTouch #1 ea 10/19/22 Ultra2 Meter) empagliflozin 10 mg tablet 10 mg PO DAILY #90 tabs 10/19/22 (Jardiance) lancets 33 gauge (BD Ultra Fine #100 ea 10/19/22 Lancets) omeprazole 20 mg tablet,delayed 20 mg PO DAILY #90 tabs 10/19/22 release Allergies Allergy/AdvReac Type Severity Reaction Status Date / Time amoxicillin trihydrate Allergy Intermediate Rash Verified 10/19/22 14:57 [From Augmentin] potassium clavulanate Allergy Intermediate Rash Verified 10/19/22 14:57 [From Augmentin] Opioids - Morphine Analogues AdvReac Mild Nausea Verified 04/06/23 14:57 General Stated Complaint: Dizzy/Sync JAIR: 3 Review of Systems All systems reviewed & are unremarkable except as noted in HPI and below Constitutional Constitutional: Reports as per HPI, Denies chills and Denies fever(s) Eyes Eyes: Denies blurry vision ENT Ears, Nose, Mouth, and Throat: Reports dizziness, Denies sore throat and Denies throat swelling Cardiovascular Cardiovascular: Denies chest pain and Denies dyspnea Respiratory Respiratory: Denies cough and Denies dyspnea Gastrointestinal Gastrointestinal: Denies abdominal pain, Denies diarrhea, Reports nausea and Denies vomiting Genitourinary Genitourinary: Denies hematuria and Denies dysuria Musculoskeletal Musculoskeletal: Denies back pain and Denies numbness Integumentary/Breasts Skin/Breast: Denies lesions and Denies rash Neurologic Neurologic: Reports dizziness, Denies localized weakness and Denies numbness Allergic/Immunologic Allergic/Immunologic: Denies throat swelling PFSH All Active Problems (Updated 10/27/22 @ 13:11 by Jelly Perez DO) Dizziness (Acute) Nausea (Acute) Acanthosis nigricans (Acute) Diabetes (Chronic) Back pain (Acute) Acute depression (Acute) Screening cholesterol level (Acute) Screening for diabetes mellitus (Acute) Kidney stone on left side (Acute) Medical History (Updated 10/27/22 @ 13:11 by Jelly Perez DO) Anxiety with depression GERD (gastroesophageal reflux disease) Hypertension Kidney stone Obesity, morbid, BMI 50 or higher LIS (obstructive sleep apnea) Type 2 diabetes mellitus Surgical History S/P ureteral stent placement Family History Mother Essential hypertension Stroke Father Depression Brother No problems noted. Brother No problems noted. Son No problems noted. Son No problems noted. 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 What type of physical activity do you participate in: none Do you feel safe at home: Yes Do you feel safe in your relationship?: Yes Exam Const General: cooperative and no acute distress Orientation: alert, awake and oriented x3 HENMT Head: normal to inspection Ears: hearing grossly normal bilaterally, external ears normal and TM's normal bilaterally General nose exam: external nose normal Face and sinus: normal facial exam Mouth: oral mucosae normal Teeth and gingiva: poor dentition Throat: posterior oropharynx normal Eyes General: appearance normal, both eyes and all related structures Pupils: PERRL EOM: EOM intact bilaterally Neck Neck: normal visual inspection and No submandibular swelling Lymphatic: no lymphadenopathy noted Chest Chest: normal inspection of the chest and no tenderness Resp Effort & Inspection: normal respiratory effort and able to speak in complete sentences Auscultation: clear to auscultation bilaterally Cardio Rate: regular rate Rhythm: regular rhythm GI Inspection: normal to inspection and obesity Palpation: soft, not firm, not rigid and nontender Auscultation: hypoactive bowel sounds Back/Spine/Pelvis Thoracic/Lumbar Spine: thoracic and lumbar spine normal to inspection Pelvis: no pain with anterior-posterior compression Skin General skin exam: no rashes or lesions noted Neuro General: patient alert, patient awake, patient oriented x3, moves all extremities, no meningeal signs and no focal motor deficits Cranial Nerves: CN's II-XI intact bilaterally and no nystagmus Cognition: normal cognition Speech: speech normal Motor: muscle tone normal throughout and strength 5/5 throughout Sensory Exam: no sensory deficits noted Extrem General: normal to inspection, full ROM, capillary refill normal, no calf tenderness bilaterally and no edema Other: Distal lower extremity pulses intact. Right posterior leg appears normal to inspection without edema, erythema, ecchymosis or rash. Psych Appearance: grossly normal Mental Status: mental status grossly normal Speech and Movement: speech and movement normal Affect: normal affect Course Vital Signs Vital signs: Vital Signs Pulse 75 10/27/22 10:05 Respiratory Rate 18 10/27/22 10:05 Blood Pressure 168/84 H 10/27/22 10:05 Pulse 75 10/27/22 10:05 Respiratory Rate 18 10/27/22 10:05 Blood Pressure 168/84 H 10/27/22 10:05 Blood Pressure Position Sitting 10/27/22 10:05 Oxygen Delivery Method Room Air 10/27/22 10:05 Oxygen Flow Rate 0 10/27/22 10:05 Pain Level 2 10/27/22 10:05 Comment Pt reports sore neck left side, awoke this morning. Pt reports H/O sore neck in past , relates to muscle 10/27/22 10:05
[2022-10-27] MEDS: Ondansetron 4 MG/2 ML VIAL IVP (10:30)
--- NOTE | 2022-10-27 10:30 | DI.US_ITS ---
Exam(s) US LOWER EXTREMITY VENOUS RT EXAM: US LOWER EXTREMITY VENOUS RT CLINICAL HISTORY: pain R post leg, r/o dvt. TECHNIQUE: Lower extremity venous ultrasound performed using grayscale, color-flow, and spectral Do ppler analysis. COMPARISON: No exams were available for comparison FINDINGS: The common femoral, femoral and popliteal veins demonstrate normal compressibility, augmentation, and color Doppler. The posterior tibial veins are patent. No saphenous vein thrombosis or other superfi cial venous thrombosis is seen. No hematoma or Jackman's cyst is seen. IMPRESSION: Negative lower extremity ultrasound. No evidence of DVT. DATA REPOSITORY:
--- NOTE | 2022-10-27 10:30 | RT.EKG_ITS ---
APPROVED REPORT Exam: Resting ECG Reason for Exam: dizzy Patient Location: E HR:68 bpm ECG Measurements Heart Rate [address] 176 P 7 QRSd 101 QRS 0 QT 355 T [id number] QTc 378 Conclusion Sinus rhythm...normal P axis, V-rate 60- 99 Indeterminate axis...QRS axis indeterminate Nonspecific T abnormalities, lateral leads...T <-0.10mV, I aVL V5 V6. Sinus. Normal axis. No STEMI. I have reviewed and interpreted ECG and agree with software generated interpretation.
[2022-10-27 10:55] LABS: BE (Venous) -1 mmol/L (-2-3); HCO3 (Venous) 23 mmol/L (23-28); pCO2 (Venous) 36 mmHg (41-51); pH (Venous) 7.43 (7.31-7.41); pO2 (Venous) 212 mmHg
[2022-10-27 10:58] LABS: O2 Sat (Venous) > 100 %
[2022-10-27 11:18] LABS: Abs Immature Grans 0.01 10^3/uL (0.0-0.06); Absolute Basophil Count 0.03 10^3/uL (0.0-0.2); Absolute Eosinophil Count 0.14 10^3/uL (0.0-0.7); Absolute Lymphocyte Count 2.84 10^3/uL (1.2-3.4); Absolute Monocyte Count 0.68 10^3/uL (0.1-0.8); Absolute Neutrophil Count 3.75 10^3/uL (1.2-6.7); Basophils % 0.4; Eosinophils % 1.9; HCT 44.6 % (40.0-50.0); HGB 15.3 g/dL (13.5-17.5); Immature Grans % 0.1; Lymphocytes % 38.1; MCH 30.4 pg (27.0-33.0); MCHC 34.3 % (32.0-36.0); MCV 89 fL (80-95); Monocytes % 9.1; Neutrophils % 50.4; Platelet Count 236 10^3/uL (130-400); RBC 5.04 10^6/uL (4.36-5.78); RDW 12.5 % (11.8-14.1); RDW-SD 40.6 fL; WBC 7.45 10^3/uL (4.4-10.8)
[2022-10-27 11:37] LABS: ALT 61 U/L (16-63); AST 38 U/L (15-37); Albumin 3.6 g/dL (3.4-5.0); Alkaline Phosphatase 84 U/L (46-116); Anion Gap 5.5 mmol/L (3-11); BUN 13 mg/dL (7-18); Bilirubin, Total 0.4 mg/dL (0.2-1.0); CO2 27.5 mmol/L (21.0-32.0); CREATININE 0.8 mg/dL (0.70-1.30); Calcium 8.8 mg/dL (8.5-10.1); Chloride 105 mmol/L (98-107); Estimated GFR 112.61 (mL/min/1.73m2); Glucose 190 mg/dL (74-106); Potassium 4.4 mmol/L (3.5-5.1); Sodium 138 mmol/L (136-145); Total Protein 7.2 g/dL (6.4-8.2)
[2022-10-27] MEDS: Normal Saline 1,000 ML 1000 ML IV (11:38)
[2022-10-27 11:43] LABS: COVID-19 PCR Negative (Negative); Influenza A PCR Negative (Negative); Influenza B PCR Negative (Negative); RSV PCR Negative (Negative)
[2022-10-27 11:46] LABS: Source Nasopharynx
[2022-10-27 11:51] LABS: D-Dimer 346 ng/mlFEU (<500)
--- NOTE | 2022-10-27 12:17 | DI.RAD_ITS ---
Exam(s) XR CHEST 2V PA LATERAL EXAM: XR CHEST 2V PA LATERAL CLINICAL HISTORY: dizziness, r/o acute disease TECHNIQUE: 2D digital imaging was performed. COMPARISON: No exams were available for comparison FINDINGS: Exam is mildly limited by patient body habitus. HEART: Normal size. Aorta: Not dilated. PULMONARY VASCULATURE: Normal. LUNGS: Clear. PLEURAL SPACE: No pleural effusion or pneumothorax. BONE:Degenerative changes lower thoracic spine. IMPRESSION: No acute abnormality. DATA REPOSITORY: RADIATION DOSE DELIVERED:
[2022-10-27 12:25] LABS: Bilirubin Negative (Negative); Blood Negative (Negative); Clarity Clear (Clear); Glucose 500 mg/dL (Negative); Ketones Negative (Negative); Leukocyte Esterase Negative (Negative); Nitrite Negative (Negative); Specific Gravity >= 1.030 (1.005-1.025); Urobilinogen 0.2 mg/dL (Up to 0.2); pH 5.5 (5-8)
[2022-10-27 13:03] VITALS: BP 136/74; PULSE 68; RESP 18; TEMP 36.6; O2SAT 97
--- NOTE | 2022-10-27 13:04 | NUR.NOTE ---
Nursing Note: Pt awake, sitting on edge of bed, pt denies pain, denies chest pain, denies SOB, denies concerns. Pt denies dizziness/lightheadedness on ambulation, steady gait with ambulating. Dr Jelly Perez at pt's bedside, reviewing results, discharge instructions reviewed. Pt in agreement with disposition to home.
[2022-10-27 13:08] VITALS: BP 128/74; PULSE 67; RESP 18; TEMP 36.6; O2SAT 97
== END 2022-10-27 13:21 | disposition home or self-care (01) ==
PROVIDERS: Emergency Provider Physician Assistant; PCP Nurse Practitioner Family
DX: R42 Dizziness and giddiness (principal); R11.0 Nausea; I10 Essential (primary) hypertension; E11.9 Type 2 diabetes mellitus without complications; E66.01 Morbid (severe) obesity due to excess calories; Z20.822 Contact with and (suspected) exposure to COVID-19
CPT/HCPCS: 80053; 82805; 87637; 93005; 96361; 96374; 99284; 71046; 81003; 85025; 85379; 93010; 93971; 99283; J2405

== ENCOUNTER 2022-12-17 17:12 | Emergency (ER) | payer OTHER, SELFPAY ==
[2022-12-17 17:19] VITALS: BP 134/77; PULSE 86; RESP 14; TEMP 36.6; O2SAT 96
--- NOTE | 2022-12-17 17:36 | DI.RAD_ITS ---
Exam(s) XR FINGER RT INDEX EXAM: XR FINGER RT INDEX CLINICAL HISTORY: left finger drill, question fb, radial aspect of. TECHNIQUE: 2D digital imaging was performed of the right finger. Three views were obtained. PA/AP, oblique, and lateral views were obtained. COMPARISON: No exams were available for comparison FINDINGS: BONES: No acute fracture is present. No bony destructive lesion is seen. JOINTS: No dislocation present. The joint spaces are well maintained. SOFT TISSUE: There is a 2 mm linear hyperdense structure in the subcutaneous tissues adjacent to the junction of the proximal middle thirds of the proximal phalanx. It appears to lie in the palmar soft tissues. There is soft tissue swelling of the index finger. IMPRESSION: 2 mm foreign body in the soft tissues of the index finger as described above. DATA REPOSITORY: RADIATION DOSE DELIVERED:
--- NOTE | 2022-12-17 18:03 | DI.VRAD_ITS ---
PROCEDURE INFORMATION: Exam: XR Right Finger(s) Exam date and time: 12/17/2022 5:46 PM Age: 42 years old Clinical indication: Right finger, drill question fb radial aspect of finger TECHNIQUE: Imaging protocol: Radiologic exam of the right fingers. Views: Minimum 2 views. COMPARISON: No relevant prior studies available. FINDINGS: Bones/joints: No acute fracture or dislocation. The alignment is anatomic. Soft tissues: There is a 1.8 mm linear hyperdense structure subcutaneous soft tissues in the palmar aspect of the 2nd digit. This is seen adjacent to the mid to proximal aspect of the proximal phalanx (image 1, series 2). IMPRESSION: 1. No acute fracture or dislocation. 2. Suspect small 1.8 mm foreign body as described. Dictated and Authenticated by: Pita Xiong MD. Ordering:SILVA Steele MD
--- NOTE | 2022-12-17 22:27 | ED.GENADUL_ITS ---
Discharge Plan Disposition Patient Disposition: Home Condition: Stable Discharge Details Clinical Impression: Puncture wound Primary Care Provider: Wilfrid Frank ED Provider: Ivette Hebert Home Meds and New Rx's Prescriptions: New cephalexin 500 mg capsule 500 mg PO Q6H 7 Days Qty: 28 0RF Continued sertraline 50 mg tablet 50 mg PO DAILY Qty: 90 3RF cetirizine [Zyrtec] 10 mg tablet 10 mg PO DAILY PRN (Reason: allergy symptoms) Qty: 90 3RF (DME) blood-glucose meter [OneTouch Ultra2 Meter] Misc See Rx Instructions .Route Qty: 1 0RF Rx Instructions: Daily (DME) OneTouch Ultra Test Strip See Rx Instructions .Route Qty: 100 0RF Rx Instructions: daily (DME) lancets [BD Ultra Fine Lancets] 33 gauge misc See Rx Instructions .Route Qty: 100 0RF Rx Instructions: daily Jardiance 10 mg tablet 10 mg PO DAILY Qty: 90 3RF omeprazole 20 mg tablet,delayed release (DR/EC) 20 mg PO DAILY Qty: 90 3RF metformin 500 mg tablet 1,000 mg PO BID Qty: 90 4RF Rx Instructions: Take 1000mg twice a day. atorvastatin 10 mg tablet 10 mg PO QHS Qty: 90 3RF sertraline 100 mg tablet 100 mg PO DAILY Qty: 90 3RF lisinopril 10 mg tablet 10 mg PO DAILY Qty: 90 3RF ondansetron 4 mg tablet,disintegrating 4 mg PO Q8H PRN (Reason: nausea and vomiting) Qty: 7 0RF Discharge Instructions Instructions: Puncture Wound (ED) Additional Instructions: Take the antibiotic as prescribed Soak in warm water Tylenol as needed for discomfort Recheck in 48 hours recommended Return with spreading redness, fever, worsening pain Referrals: Wilfrid Frank, SERVER SUPPORT TECHNICIAN [Primary Care Provider] - 1 day Medical Decision Making Right second digit with puncture noted on radial aspect, mild erythema surrounding it, no crepitus or fluctuance, x-ray was ordered, there is some debris superficially I did perform a block to the finger with 3 cc of lidocaine 1% without epinephrine I then irrigated and removed several possible foreign bodies, patient has significant callus and unsure if this is callus or actual foreign body, irrigated copiously and placed patient on Keflex A dressing was applied Ibuprofen and Tylenol as needed pain Return precautions reviewed and patient expressed understanding Discharged home in stable condition with stable vitals HPI General Date/Time Provider Initiated Documentation: 12/17/22 17:36 . HPI Narrative: This 42-year-old male presents with report of injury 2 weeks ago to his right second digit. He states that he was drilling through metal and plastic. He denies any additional injuries. He states that his tetanus is up-to-date. He states it started hurting 48 hours ago and he is concerned there are some plastic retained in the wound. Related Data Home Medications Medication Instructions Recorded Confirmed metformin 500 mg tablet 1,000 mg PO BID #90 tabs 09/23/21 12/17/22 cetirizine 10 mg tablet (Zyrtec) 10 mg PO DAILY PRN allergy 10/13/21 12/17/22 symptoms #90 tabs atorvastatin 10 mg tablet 10 mg PO QHS #90 tabs 11/14/21 12/17/22 sertraline 100 mg tablet 100 mg PO DAILY #90 tab-caps 01/26/22 12/17/22 ondansetron 4 mg disintegrating 4 mg PO Q8H PRN nausea and 05/13/22 12/17/22 tablet vomiting #7 tabs sertraline 50 mg tablet 50 mg PO DAILY #90 tabs 05/24/22 12/17/22 lisinopril 10 mg tablet 10 mg PO DAILY #90 tabs 09/11/22 12/17/22 blood sugar diagnostic (OneTouch #100 ea 10/19/22 12/17/22 Ultra Test strips) blood-glucose meter (OneTouch #1 ea 10/19/22 12/17/22 Ultra2 Meter) empagliflozin 10 mg tablet 10 mg PO DAILY #90 tabs 10/19/22 12/17/22 (Jardiance) lancets 33 gauge (BD Ultra Fine #100 ea 10/19/22 12/17/22 Lancets) omeprazole 20 mg tablet,delayed 20 mg PO DAILY #90 tabs 10/19/22 12/17/22 release cephalexin 500 mg capsule 500 mg PO Q6H 7 days #28 caps 12/17/22 Previous Rx's Medication Instructions Recorded metformin 500 mg tablet 1,000 mg PO BID #90 tabs 09/23/21 cetirizine 10 mg tablet (Zyrtec) 10 mg PO DAILY PRN allergy 10/13/21 symptoms #90 tabs atorvastatin 10 mg tablet 10 mg PO QHS #90 tabs 11/14/21 sertraline 100 mg tablet 100 mg PO DAILY #90 tab-caps 01/26/22 ondansetron 4 mg disintegrating 4 mg PO Q8H PRN nausea and 05/13/22 tablet vomiting #7 tabs sertraline 50 mg tablet 50 mg PO DAILY #90 tabs 05/24/22 lisinopril 10 mg tablet 10 mg PO DAILY #90 tabs 09/11/22 blood sugar diagnostic (OneTouch #100 ea 10/19/22 Ultra Test strips) blood-glucose meter (OneTouch #1 ea 10/19/22 Ultra2 Meter) empagliflozin 10 mg tablet 10 mg PO DAILY #90 tabs 10/19/22 (Jardiance) lancets 33 gauge (BD Ultra Fine #100 ea 10/19/22 Lancets) omeprazole 20 mg tablet,delayed 20 mg PO DAILY #90 tabs 10/19/22 release cephalexin 500 mg capsule 500 mg PO Q6H 7 days #28 caps 12/17/22 Allergies Allergy/AdvReac Type Severity Reaction Status Date / Time amoxicillin trihydrate Allergy Intermediate Rash Verified 12/17/22 17:23 [From Augmentin] potassium clavulanate Allergy Intermediate Rash Verified 12/17/22 17:23 [From Augmentin] Opioids - Morphine Analogues AdvReac Mild Nausea Verified 12/17/22 17:23 General Stated Complaint: Laceration JAIR: 4 PFSH All Active Problems (Updated 12/17/22 @ 18:38 by SHANNON Rowland) Puncture wound (Acute) Acanthosis nigricans (Acute) Diabetes (Chronic) Back pain (Acute) Acute depression (Acute) Screening cholesterol level (Acute) Screening for diabetes mellitus (Acute) Kidney stone on left side (Acute) Medical History (Updated 12/17/22 @ 18:38 by SHANNON Rowland) Anxiety with depression GERD (gastroesophageal reflux disease) Hypertension Kidney stone Obesity, morbid, BMI 50 or higher LIS (obstructive sleep apnea) Type 2 diabetes mellitus Surgical History S/P ureteral stent placement Family History Mother Essential hypertension Stroke Father Depression Brother No problems noted. Brother No problems noted. Son No problems noted. Son No problems noted. 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 What type of physical activity do you participate in: none Do you feel safe at home: Yes Do you feel safe in your relationship?: Yes Course Vital Signs Vital signs: Vital Signs Temperature 36.6 C 12/17/22 17:19 Pulse 86 12/17/22 17:19 Respiratory Rate 14 12/17/22 17:19 Blood Pressure 134/77 12/17/22 17:19 Pulse Oximetry 96 12/17/22 17:19 Temperature 36.6 C 12/17/22 17:19 Temperature Source Temporal Artery Scan 12/17/22 17:19 Pulse 86 12/17/22 17:19 Respiratory Rate 14 12/17/22 17:19 Respiratory Effort Normal, Non-Labored 12/17/22 17:24 Blood Pressure 134/77 12/17/22 17:19 Blood Pressure Position Sitting 12/17/22 17:19 Pulse Oximetry 96 12/17/22 17:19 Oxygen Delivery Method Room Air 12/17/22 17:19 Oxygen Flow Rate 0 12/17/22 17:19 Pain Level 3 12/17/22 17:19 PAWSS Have you Been Recently Intoxicated or Drunk Within the Last 30 days?: No Have you Ever Experienced Previous Episodes of Alcohol Withdrawal?: No Have you ever Experienced Withdrawal Seizures?: No Have you ever Experienced Delirium Tremens(DT)s?: No Have you ever undergone Alcohol Rehabilitation Treatment (i.e, inpt ot outpatient treatment programs)?: No Have you ever Experienced Blackouts?: No Have you ever Combined Alcohol with other Downers within the last 90 days?: No Have you ever Combined Alcohol with any other Substance of Abuse during the last 90 days?: No Positive Blood Alcohol level on Presentation? [PCS.BAL]: No Evidence of Increased Autonomic Activity (i.e. HR>120, tremor, sweating, agitation, nausea)?: No Result: 0
== END 2022-12-17 18:53 | disposition home or self-care (01) ==
PROVIDERS: Emergency Provider Physician Assistant; PCP Nurse Practitioner Family
DX: S61.240A Puncture wound with foreign body of right index finger without damage to nail, initial encounter (principal); W29.3XXA Contact with powered garden and outdoor hand tools and machinery, initial encounter
CPT/HCPCS: 99283; 73140; 99284

== ENCOUNTER 2023-03-02 10:19 | Emergency (ER) | payer OTHER, SELFPAY ==
[2023-03-02 10:22] VITALS: BP 154/92; PULSE 85; RESP 18; TEMP 36.3; O2SAT 95
[2023-03-02] MEDS: Fluorescein STRIPS 100/BOX 1 MG OP (10:30)
[2023-03-02] MEDS: Tetracaine 0.5% 4 ML BTL OP (10:30)
[2023-03-02] MEDS: Balanced Salt Solution 15 ML BTL OP (10:30)
--- NOTE | 2023-03-02 10:40 | ED.GENADUL_ITS ---
Discharge Plan Disposition Patient Disposition: Home Discharge Details Clinical Impression: Blunt force trauma, right eye, Eyelid laceration, right Primary Care Provider: Wilfrid Frank ED Provider: Sancho Gomes Home Meds and New Rx's Prescriptions: New ketorolac 0.4 % drops 1 drp ophthalmic (eye) QID PRN (Reason: pain) 4 Days Qty: 5 0RF No Action sertraline 50 mg tablet 50 mg PO DAILY Qty: 90 3RF cetirizine [Zyrtec] 10 mg tablet 10 mg PO DAILY PRN (Reason: allergy symptoms) Qty: 90 3RF (DME) blood-glucose meter [OneTouch Ultra2 Meter] Misc See Rx Instructions .Route Qty: 1 0RF Rx Instructions: Daily (DME) OneTouch Ultra Test Strip See Rx Instructions .Route Qty: 100 0RF Rx Instructions: daily (DME) lancets [BD Ultra Fine Lancets] 33 gauge misc See Rx Instructions .Route Qty: 100 0RF Rx Instructions: daily Jardiance 10 mg tablet 10 mg PO DAILY Qty: 90 3RF omeprazole 20 mg tablet,delayed release (DR/EC) 20 mg PO DAILY Qty: 90 3RF metformin 500 mg tablet 1,000 mg PO BID Qty: 90 4RF Rx Instructions: Take 1000mg twice a day. atorvastatin 10 mg tablet 10 mg PO QHS Qty: 90 3RF sertraline 100 mg tablet 100 mg PO DAILY Qty: 90 3RF lisinopril 10 mg tablet 10 mg PO DAILY Qty: 90 3RF ondansetron 4 mg tablet,disintegrating 4 mg PO Q8H PRN (Reason: nausea and vomiting) Qty: 7 0RF Discharge Instructions Instructions: Eye Pain (ED) Additional Instructions: Please continue to monitor symptoms. You may use the provided pain drops along with any [id number] moisturizing drops as needed. If you have any severe change in vision, worsening of pain, or any other concerns feel free to return the emergency department for reassessment otherwise follow-up with eye care center as needed and if not improving. Referrals: [facility] [Outside] (As needed for reassessment) Discharge Data Discharge Date/Time-TO BE ENTERED AT DEPARTURE: 03/02/23 10:50 Medical Decision Making Patient presenting to the emergency department for chief complaint of eye injury. Patient states he was putting up a Wi-Fi repeat her into the ceiling and the box slipped having the plastic intent to strike him in the medial aspect of his right eye. Patient states that symptoms are actually improving but that he does have a slight laceration to his eyelid and some irritation and tearing of the right eye. Patient denies any vision loss, states up-to-date on tetanus, and denies all other injury or trauma. Physical exam shows small laceration that is only about 2 mm in length that is superficial to the right upper eyelid. Patient has significant conjunctival erythema and irritation but otherwise exam is unremarkable. Did perform fluorescein exam with Jennings lamp and slit lamp and no corneal or peripheral abrasion was noted no globe rupture, appropriate visual acuity was obtained. Patient given ketorolac eyedrops to help with discomfort and otherwise encouraged to monitor symptoms return for new or worsening of condition. After discussion of diagnosis and plan of care patient has no further needs, questions, or concerns and states clear understanding to return to the emergency department for any worsening symptoms. This documentation was generated using [employer] dictation system, please disregard any oddities of phrase or misspellings. HPI General Mode of arrival: ambulatory . Date/Time Provider Initiated Documentation: 03/02/23 10:24 . Limitations to Documentation: no limitations . Information obtained by: patient and RN notes reviewed . History of Present Illness 42 year old M presents to the emergency department with the chief complaint of Right eye injury, described as mild and moderate, and is localized to the right (Medial eye). Patient started experiencing this hour(s) (1) and it has been constant. No relieving factors improve symptom(s), No exacerbating factors reported . Patient notes no other symptoms.. Patient did receive the following treatments prior to arrival, none Related Data Home Medications Medication Instructions Recorded Confirmed metformin 500 mg tablet 1,000 mg PO BID #90 tabs 09/23/21 03/02/23 cetirizine 10 mg tablet (Zyrtec) 10 mg PO DAILY PRN allergy 10/13/21 03/02/23 symptoms #90 tabs atorvastatin 10 mg tablet 10 mg PO QHS #90 tabs 11/14/21 03/02/23 sertraline 100 mg tablet 100 mg PO DAILY #90 tab-caps 01/26/22 03/02/23 ondansetron 4 mg disintegrating 4 mg PO Q8H PRN nausea and 05/13/22 03/02/23 tablet vomiting #7 tabs sertraline 50 mg tablet 50 mg PO DAILY #90 tabs 05/24/22 03/02/23 lisinopril 10 mg tablet 10 mg PO DAILY #90 tabs 09/11/22 03/02/23 blood sugar diagnostic (OneTouch #100 ea 10/19/22 12/17/22 Ultra Test strips) blood-glucose meter (OneTouch #1 ea 10/19/22 12/17/22 Ultra2 Meter) empagliflozin 10 mg tablet 10 mg PO DAILY #90 tabs 10/19/22 03/02/23 (Jardiance) lancets 33 gauge (BD Ultra Fine #100 ea 10/19/22 12/17/22 Lancets) omeprazole 20 mg tablet,delayed 20 mg PO DAILY #90 tabs 10/19/22 03/02/23 release ketorolac 0.4 % eye drops 1 drp ophthalmic (eye) QID PRN 03/02/23 pain 4 days #5 mL Previous Rx's Medication Instructions Recorded metformin 500 mg tablet 1,000 mg PO BID #90 tabs 09/23/21 cetirizine 10 mg tablet (Zyrtec) 10 mg PO DAILY PRN allergy 10/13/21 symptoms #90 tabs atorvastatin 10 mg tablet 10 mg PO QHS #90 tabs 11/14/21 sertraline 100 mg tablet 100 mg PO DAILY #90 tab-caps 01/26/22 ondansetron 4 mg disintegrating 4 mg PO Q8H PRN nausea and 05/13/22 tablet vomiting #7 tabs sertraline 50 mg tablet 50 mg PO DAILY #90 tabs 05/24/22 lisinopril 10 mg tablet 10 mg PO DAILY #90 tabs 09/11/22 blood sugar diagnostic (OneTouch #100 ea 10/19/22 Ultra Test strips) blood-glucose meter (OneTouch #1 ea 10/19/22 Ultra2 Meter) empagliflozin 10 mg tablet 10 mg PO DAILY #90 tabs 10/19/22 (Jardiance) lancets 33 gauge (BD Ultra Fine #100 ea 10/19/22 Lancets) omeprazole 20 mg tablet,delayed 20 mg PO DAILY #90 tabs 10/19/22 release ketorolac 0.4 % eye drops 1 drp ophthalmic (eye) QID PRN 03/02/23 pain 4 days #5 mL Allergies Allergy/AdvReac Type Severity Reaction Status Date / Time amoxicillin trihydrate Allergy Intermediate Rash Verified 03/02/23 10:25 [From Augmentin] potassium clavulanate Allergy Intermediate Rash Verified 03/02/23 10:25 [From Augmentin] Opioids - Morphine Analogues AdvReac Mild Nausea Verified 03/02/23 10:25 General Stated Complaint: EyeProblem JAIR: 4 Review of Systems Narrative: 6 systems reviewed and unremarkable except what is marked below. Eyes Eyes: Reports as per HPI, Denies change in vision, Reports irritation, Denies loss of peripheral vision, Denies loss of vision, Reports eye pain and Reports photophobia Neurologic Neurologic: Denies loss of vision PFSH All Active Problems Blunt force trauma, right eye (Acute) Eyelid laceration, right (Acute) Acanthosis nigricans (Acute) Diabetes (Chronic) Back pain (Acute) Acute depression (Acute) Screening cholesterol level (Acute) Screening for diabetes mellitus (Acute) Kidney stone on left side (Acute) Medical History Anxiety with depression GERD (gastroesophageal reflux disease) Hypertension Kidney stone Obesity, morbid, BMI 50 or higher LIS (obstructive sleep apnea) Type 2 diabetes mellitus Surgical History S/P ureteral stent placement Family History Mother Essential hypertension Stroke Father Depression Brother No problems noted. Brother No problems noted. Son No problems noted. Son No problems noted. 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 What type of physical activity do you participate in: none Do you feel safe at home: Yes Do you feel safe in your relationship?: Yes Exam Const General: cooperative, no acute distress and not ill appearing Orientation: alert, awake and oriented x3 HENMT Mouth: moist mucous membranes Eyes Alignment and Position: alignment normal Periorbital: periorbital findings abnormal right periorbital erythema Eyelids: eyelid abnormality right upper eyelid laceration not involving eyelid margin Conjunctivae: conjunctival abnormality right conjunctival injection localized (Medial aspect only) Sclera: sclerae normal Cornea: corneas normal Pupils: PERRL, normal by confrontation and accommodation normal EOM: EOM intact bilaterally Resp Effort & Inspection: normal respiratory effort, able to speak in complete sentences and no respiratory distress Skin General skin exam: no rashes or lesions noted Neuro General: patient alert, patient awake, patient oriented x3, moves all extremities and no focal motor deficits Course Vital Signs Vital signs: Vital Signs Temperature 36.3 C L 03/02/23 10:22 Pulse 85 03/02/23 10:22 Respiratory Rate 18 03/02/23 10:22 Blood Pressure 154/92 H 03/02/23 10:22 Pulse Oximetry 95 03/02/23 10:22 Temperature 36.3 C L 03/02/23 10:22 Temperature Source Skin 03/02/23 10:22 Pulse 85 03/02/23 10:22 Respiratory Rate 18 03/02/23 10:22 Blood Pressure 154/92 H 03/02/23 10:22 Blood Pressure Position Sitting 03/02/23 10:22 Pulse Oximetry 95 03/02/23 10:22 Oxygen Delivery Method Room Air 03/02/23 10:22 Oxygen Flow Rate 0 03/02/23 10:22 Pain Level 6 03/02/23 10:22
== END 2023-03-02 10:50 | disposition home or self-care (01) ==
PROVIDERS: Emergency Provider Nurse Practitioner Family; PCP Nurse Practitioner Family
DX: S01.111A Laceration without foreign body of right eyelid and periocular area, initial encounter (principal); S05.8X1A Other injuries of right eye and orbit, initial encounter; W20.8XXA Other cause of strike by thrown, projected or falling object, initial encounter
CPT/HCPCS: 99283

== ENCOUNTER 2023-05-30 17:10 | Outpatient (REF) | payer OTHER, SELFPAY ==
[2023-05-30 21:30] LABS: ALT 65 U/L (16-63); AST 27 U/L (15-37); Alkaline Phosphatase 108 U/L (46-116); Anion Gap 10.1 mmol/L (3-11); BUN 18 mg/dL (7-18); Bilirubin, Total 0.3 mg/dL (0.2-1.0); CO2 24.9 mmol/L (21.0-32.0); CREATININE 0.9 mg/dL (0.70-1.30); Calcium 9.6 mg/dL (8.5-10.1); Chloride 99 mmol/L (98-107); Estimated GFR 108.01 (mL/min/1.73m2); Glucose 280 mg/dL (74-106); Potassium 4.6 mmol/L (3.5-5.1); Sodium 134 mmol/L (136-145); Total Protein 7.8 g/dL (6.4-8.2)
== END 2023-05-30 17:11 | disposition home or self-care (01) ==
LOC: LBN 17:10
PROVIDERS: PCP Nurse Practitioner Family; Visit Provider Nurse Practitioner Family
DX: E11.9 Type 2 diabetes mellitus without complications (principal)
CPT/HCPCS: 80053

== ENCOUNTER 2024-03-13 04:17 | Outpatient (CLI) | payer OTHER, SELFPAY ==
[2024-03-14 09:22] LABS: Lyme Ab w Rflx to Lyme Confirm Negative (Negative)
[2024-03-16 16:13] LABS: Anaplasma phagocytophilum Negative (Negative); B. miyamotoi PCR Negative (Negative); Babesia divergens/MO-1 Negative (Negative); Babesia duncani Negative (Negative); Babesia microti Negative (Negative); Ehrlichia chaffeensis Negative (Negative); Ehrlichia ewingii/canis Negative (Negative); Ehrlichia muris eauclairensis Negative (Negative)
== END 2024-03-13 04:18 | disposition home or self-care (01) ==
LOC: LBO 04:17
PROVIDERS: PCP Nurse Practitioner Family; Visit Provider Nurse Practitioner Family
DX: M79.18 Myalgia, other site (principal)
CPT/HCPCS: 36415; 87798; 86618

== ENCOUNTER 2024-10-06 06:27 | Day surgery (SDC) | payer OTHER, SELFPAY ==
--- NOTE | 2024-10-05 14:32 | W.PM.DSUDISC ---
Date of service: 10/06/24 Discharge Plan Disposition Patient Disposition: Home Condition: Good Discharge Details Reason For Visit: screening colonoscopy Attending Provider: Skinny Bowen Primary Care Provider: Wilfrid Frank Home Meds and New Rx's Prescriptions: Continued (DME) blood-glucose meter [OneTouch Ultra2 Meter] Misc See Rx Instructions .Route Qty: 1 0RF Rx Instructions: Daily omeprazole 20 mg tablet,delayed release (DR/EC) 20 mg PO DAILY Qty: 90 3RF lisinopril 10 mg tablet 10 mg PO DAILY Qty: 90 3RF sertraline 100 mg tablet 100 mg PO DAILY Qty: 90 3RF (DME) pen needle, diabetic [BD Bela 2nd Gen Pen Needle] 32 gauge x 5/32 needle See Rx Instructions .Route Qty: 100 3RF Rx Instructions: 5 times per day (DME) lancets 33 gauge misc See Rx Instructions .Route Qty: 100 3RF Rx Instructions: TID (DME) OneTouch Ultra Test Strip See Rx Instructions .Route Qty: 100 3RF Rx Instructions: TID atorvastatin 10 mg tablet 10 mg PO QHS Qty: 90 3RF Jardiance 10 mg tablet 10 mg PO DAILY Qty: 90 3RF semaglutide 2 mg/dose (8 mg/3 mL) pen injector 2 mg subcut QWEEK Qty: 9 3RF Discharge Instructions Instructions: Diverticulosis Additional Instructions: Miky, was great seeing you today, and I hope you make a quick recovery after the procedure. Everything went very smoothly. Your prep was excellent, and I could see everything fine. You have some sigmoid diverticulosis. This occurs when the muscular layer of the colon wall weakens a bit, the inside lining, or mucosa, pockets or pouches outwards a bit. The individual pockets are called diverticula, and the condition of having them is called diverticulosis. These can get infected and inflamed during episodes that we refer to as diverticulitis. My general recommendation for patients with this is to stay well-hydrated, avoid symptoms of constipation, and maintain a diet that is rich in fiber, targeting approximately 20 to 30 g of fiber every day. I will attach some basic information here about diverticulosis and its management. With a negative screening colonoscopy today, recommended 10-year follow-up for your next test. If you have any questions or need anything, please do not hesitate to ask. 1. If tolerated, consume a soft, low fiber diet for 1-2 days. [address] Do not drive, drink alcohol, operate machinery, make critical decisions, or do activities that require coordination or balance for 24 hours. 3. Because air was put into your colon during the procedure, expelling air from your rectum (passing gas or farting) is normal. 4. You may not have a bowel movement for 1-3 days because of the colonoscopy prep. This is normal. 5. Go directly to the emergency room if you notice any of the following: Develop chills (warm to touch), or if you have a thermometer and your temperature is above 101 Difficulty breathing or difficultly swallowing Persistent vomiting Severe abdominal pain, other than gas cramps Severe chest pain Black, tarry stools Any bleeding ? exceeding one tablespoon 6. Call your physician if the site where your intravenous was started becomes red, swollen, painful, and warm to touch. 7. Your physician has reviewed your pre-procedure medications. Please continue to take those medications as previously ordered. You will be given specific information/education regarding any changes to your medications before leaving. Stand Alone Forms: Anesthesia Discharge Inst., [place]io Su (DSU) Activity:: Activity as Tolerated Diet:: As Tolerated Discharge Orders Discharge Orders: Discharge Order (Routine); Ordered 10/05/24 Ordered By: Skinny Bowen DS: Diagnosis Discharge Diagnosis (1) Encounter for screening colonoscopy: Status: Acute Asessment and Plan: Diverticulosis; otherwise negative screening colonoscopy, recommend 10-year follow-up
--- NOTE | 2024-10-05 14:35 | W.COLOREPORT ---
Date of service: 10/06/24 Time of Service: 08:05 Colonoscopy Report Date of procedure: 10/06/24 Pre-op diagnosis general: screening colonoscopy Post-op diagnosis procedure note: other (Sigmoid diverticulosis) Procedure: colonoscopy Surgeon: Skinny Bowen Anesthesia Type: General:No Airway Estimated blood loss (mL): 0 Pathology: none sent Complications: None Disposition: same day Indications: Miky is a 43 year old man who needs a screening colonoscopy Prep: Miralax/Dulcolax Procedure Start Time: 07:30 Procedure End Time: 07:50 Retraction Time: 10 Findings: Sigmoid diverticulosis Procedure Description: After the induction of anesthesia, and with the patient in left lateral decubitus position, I began by performing an external anorectal exam.? Perineum and skin were normal, as was the anal verge.? There was no evidence of external hemorrhoids.? Next, I performed a digital rectal exam.? I did not appreciate any abnormal findings.? Next, I advanced a colonoscope into the rectal vault.? I performed retroflexion.? This appeared normal.? Using insufflation, I then advanced the colonoscope beyond the rectal folds and into the sigmoid colon before advancing towards the cecum.? The quality of the prep was excellent.? The scope was noted to be in the cecum by identification of the ileocecal valve and appendiceal orifice.? I then began withdrawing the colonoscope using repeated irrigation as necessary for full evaluation of the colonic mucosa. There is sigmoid diverticulosis. Once the scope was withdrawn to the level of the rectum, great care was taken to examine portions of the rectal folds.? Finally, the scope was withdrawn and the patient was brought to the same-day surgery recovery unit as the anesthetic wore off. ?The findings and instructions were shared with the patient prior to discharge. [place] Bowel Prep [place] Bowel Prep Right Colon: 3 Transverse Colon: 3 Total Score: 6
[2024-10-06 06:33] VITALS: BP 118/75; PULSE 69; RESP 20; TEMP 36.7; O2SAT 96
[2024-10-06] MEDS: Lactated Ringers 1,000 ML 80 ML IV (07:05)
--- NOTE | 2024-10-06 07:11 | W.ANESPRE ---
General Info Date of Service Date Performed: 10/06/24 Height: 5 ft 10 in Weight: 155 kg Body Mass Index (BMI): 49.0 Surgical Procedure: Operation Date: 10/06/24 07:35 Proposed Procedure Side Surgeon p Colonoscopy Skinny Bowen MD Actual Procedure Side Surgeon p Colonoscopy Not Applicable Skinny Bowen MD Pre-Op Diagnosis Post-Op Diagnosis screening colonoscopy Meds Allergies and Home Medications Allergies Allergy/AdvReac Type Severity Reaction Status Date / Time amoxicillin trihydrate (From Allergy Intermediate Rash Verified 10/06/24 06:31 Augmentin) potassium clavulanate (From Allergy Intermediate Rash Verified 10/06/24 06:31 Augmentin) Opioids - Morphine Analogues AdvReac Mild Nausea Verified 10/06/24 06:31 Home Medication ?Medication ?Instructions ?Recorded blood-glucose meter (OneTouch #1 ea 10/19/22 Ultra2 Meter) omeprazole 20 mg tablet,delayed 20 mg PO DAILY #90 tabs 10/19/22 release pen needle, diabetic 32 gauge x #100 ea 05/30/23 (BD Bela 2nd Gen Pen Needle) blood sugar diagnostic (OneTouch #100 ea 05/31/23 Ultra Test strips) lancets 33 gauge #100 ea 05/31/23 atorvastatin 10 mg tablet 10 mg PO QHS #90 tabs 09/27/23 empagliflozin 10 mg tablet 10 mg PO DAILY #90 tabs 11/19/23 (Jardiance) semaglutide 2 mg/dose (8 mg/3 mL) 2 mg (0.75 mL) subcut QWEEK #9 mL 02/13/24 subcutaneous pen injector lisinopril 10 mg tablet 10 mg PO DAILY #90 tabs 07/14/24 sertraline 100 mg tablet 100 mg PO DAILY #90 tab-caps 07/14/24 Current Visit Medications: Current Medications Generic Name Dose Route Start Last Admin Trade Name Freq PRN Reason Stop Dose Admin Ringer's Solution 1,000 mls @ 80 mls/hr 10/06/24 06:00 10/06/24 07:05 IV 10/06/24 23:59 80 mls/hr INFUSION HEYDI Administration IV Miscellaneous Supplies 1 each 10/06/24 06:00 Iv Access IV 10/06/24 23:59 DIRECTED HEYDI Ondansetron HCl 4 mg 10/05/24 14:36 Ondansetron 4 Mg/2 Ml Vial IVP 11/04/24 14:35 Q4H PRN PRN Nausea / Vomiting Sodium Chloride 0 ml 10/06/24 06:00 Normal Saline Flush 10 Ml Syr IV 10/06/24 23:59 PRN PRN Sodium Chloride 0 ml 10/06/24 06:00 Normal Saline 10 Ml Vial IJ 10/06/24 23:59 DIRECTED PRN Sterile Water 0 ml 10/06/24 06:00 Water,Injection,Sterile 10 Ml Vial IJ 10/06/24 23:59 DIRECTED PRN PFSH Active Problems Active Problems: Problem Status Onset Code Encounter for screening colonoscopy Acute Z12.11 Hypertension Chronic I10 Right knee pain Acute M25.561 Acanthosis nigricans Acute L83 Diabetes Chronic E11.9 Back pain Acute M54.9 Acute depression Acute F32.9 Kidney stone on left side Acute N20.0 Medical History Medical History Type 2 diabetes mellitus GERD (gastroesophageal reflux disease) Anxiety with depression LIS (obstructive sleep apnea) Kidney stone Hypertension Obesity, morbid, BMI 50 or higher Surgical History Surgical History S/P ureteral stent placement Tobacco Smoking/Tobacco Use Status: Current every day Tobacco Type: smokeless tobacco Smokeless tobacco user: chewing tobacco Passive smoking exposure: No Second hand exposure: Yes Alcohol Alcohol Intake: current Alcohol intake frequency: holidays/special occasions only Alcohol type: beer Substance Use Substance use: Daily Substance use type: marijuana Details: 10/06/23 last use of marijuana Vital Signs and Lab Results Vital Signs Most Recent Vital Signs in EMR: Most Recent Vital Signs Temp Pulse Resp BP Pulse Ox 36.7 C 69 20 118/75 96 10/06/24 06:33 10/06/24 06:33 10/06/24 06:33 10/06/24 06:33 10/06/24 06:33 Point of Care Results Point of Care Results: Finger Stick Blood Glucose 136 10/06/24 06:40 Lab Results Blood Type / Crossmatch: No Data to Display Complete Blood Count: No Data to Display Complete Metabolic Panel: No Data to Display Liver Function Panel: No Data to Display Coagulation Panel: No Data to Display Cardiac Panel: No Data to Display Arterial Blood Gas: No Data to Display Venous Blood Gas: No Data to Display Pancreas Panel: No Data to Display Thyroid Panel: No Data to Display Infectious Disease: No Data to Display Blood Cultures: No Data to Display Toxicology Panel: No Data to Display Anesthesia Assessment and Plan Anesthesia History Personal History: No History of Anesthesia Complications Family History: No Family History of Anesthesia Complications Exercise Tolerance Exercise Tolerance: Metabolic Equivalents>4 Pertinent Negatives Pertinent Negatives: No Symptoms of GERD Cardiac & Pulmonary Exam Cardiac Exam: Normal S1/S2 Heart Sounds Pulmonary Exam: Clear Bilateral Breath Sounds Implantable Cardiac Device Does patient have a Pacemaker or an ICD?: No Airway Exam Known Difficult Airway: No Mallampati Class: 2 Mouth Opening: Normal (> 3cm) Thyromental Distance: Greater than 3 cm Facial Hair: Full [place] Neck Range of Motion: Full ROM Neck Circumference: Thick Teeth Condition: Normal Dentition ASA Classification ASA Score: ASA 3 Emergency Case?: No NPO Status NPO Status: NPO Clears >2 hours, Solids >8 hours Anesthesia Plan Resuscitation Status: Full Code Anesthesia Technique: General Anesthesia Airway Planned: Natural Airway Monitors Used: Standard Monitors
[2024-10-06 07:13] VITALS: BMI 49.0
[2024-10-06 07:54] VITALS: BP 141/70; PULSE 79; RESP 16; TEMP 36.3; O2SAT 95
[2024-10-06 08:21] VITALS: BP 135/72; PULSE 69; RESP 17; TEMP 36.3; O2SAT 96
--- NOTE | 2024-10-06 08:49 | W.ANESPOSTOP ---
Postoperative Evaluation Date, Time and Location Date Performed: 10/06/24 Time Performed: 08:15 Patient Location: Day Surgery Unit Vital Signs Most Recent Imported Vital Signs: Most Recent Vital Signs Temp Pulse Resp BP Pulse Ox 36.3 C L 69 17 135/72 96 10/06/24 08:21 10/06/24 08:21 10/06/24 08:21 10/06/24 08:21 10/06/24 08:21 Pain Score Most Recent Pain Score: Most Recent Pain Score Pain Level 0 10/06/24 08:21 Assessment Mental Status: Awake (Alert & Oriented to Patient Baseline) Airway and Respiratory Function: Patent airway with normal (patient baseline) respiratory exam Cardiovascular Function: Hemodynamically Stable Hydration Status: Adequately Hydrated Nausea & Vomiting: No Nausea or Vomiting Pain: Pt. Denies Any Pain Peripheral Nerve Block: Patient did not receive a nerve block
== END 2024-10-06 08:34 | disposition home or self-care (01) ==
LOC: SUR 06:27
PROVIDERS: PCP Nurse Practitioner Family; Visit Provider Surgery
PROC: 0DJD8ZZ Inspection of Lower Intestinal Tract, Via Natural or Artificial Opening Endoscopic (ICD-10-PCS; CPT 45378; principal; 2024-10-06 07:30)
DX: Z12.11 Encounter for screening for malignant neoplasm of colon (principal); K57.30 Diverticulosis of large intestine without perforation or abscess without bleeding
CPT/HCPCS: 45378; J2704

== ENCOUNTER 2025-04-08 04:08 | Outpatient (CLI) | payer OTHER, SELFPAY ==
[2025-04-08 08:56] LABS: Calculated LDL 99 mg/dL (<100); Cholesterol 200 mg/dL (<200); Estimated GFR 110.53 (mL/min/1.73m2); HDL Cholesterol 31 mg/dL (>or=40); Potassium 4.4 mmol/L (3.5-5.1); Triglyceride 350 mg/dL (<150)
== END 2025-04-08 04:09 | disposition home or self-care (01) ==
LOC: LBO 04:08
PROVIDERS: PCP Nurse Practitioner Family; Visit Provider Nurse Practitioner Family
DX: Z13.220 Encounter for screening for lipoid disorders (principal); I10 Essential (primary) hypertension; E11.9 Type 2 diabetes mellitus without complications
CPT/HCPCS: 36415; 80061; 82565; 84132

== ENCOUNTER 2025-05-22 11:59 | Outpatient (CLI) | payer OTHER, SELFPAY ==
[2025-05-22 12:36] LABS: TSH (W/Ref FT4) 0.45 uIU/mL (0.36-3.74)
== END 2025-05-22 12:00 | disposition home or self-care (01) ==
LOC: LBO 11:59
PROVIDERS: PCP Nurse Practitioner Family; Visit Provider Nurse Practitioner Family
DX: E03.9 Hypothyroidism, unspecified (principal)
CPT/HCPCS: 36415; 84443